=== PATIENT | female | born 1980 | race Caucasian/White ===

== ENCOUNTER → 2016-12-10 | Outpatient (CLI) | payer OTHER ==
--- NOTE | 2016-12-10 14:51 | REP ---
CHEST X-RAY: Two views. HISTORY: Shortness of breath. Evaluation for pulmonary embolus. FINDINGS: The lungs are well inflated and clear. The pleural angles are sharp. Heart size is normal. Pulmonary vasculature is not increased. There are degenerative changes in the thoracic spine. No significant change radiographically from the prior study of May 01, 2013. IMPRESSION: No active disease. Signed by Tereso Watson MD 12/10/2016 04:25 P
--- NOTE | 2016-12-10 15:18 | REP ---
V/Q SCAN: Following the intravenous administration of 5.5 millicuries technetium 99m tagged MAA and the inhalation of 1 millicurie technetium 99m DTPA aerosol, multiple images of the lungs are obtained in various projections. Non-segmental matching ventilation and perfusion defects are seen in both apical regions in a symmetrical pattern. I see no areas of V/Q mismatch. IMPRESSION: Low probability of pulmonary embolism. Signed by Demetrius Tamez MD 12/10/2016 03:19 P
== END ==
LOC: M RAD 13:54
PROVIDERS: ATTEND Internal Medicine Pulmonary Disease
DX: R06.02 Shortness of breath (principal)

== ENCOUNTER → 2017-09-22 | Outpatient (REF) | payer OTHER | LOC: M LAB REF 10:16 | DX: J02.9 Acute pharyngitis, unspecified (principal) ==

== ENCOUNTER → 2017-10-18 | Outpatient (CLI) | payer OTHER ==
[~2017-10-18] MED LIST: E-Z-GAS II EFFERVESCENT PACKET (SODIUM BICARB./CITRIC ACID/SIMETHICONE) As Ordered; E-Z-HD 98% w/w 340GM SUSP BTL As Ordered; E-Z-PAQUE 96% w/w SUSP 176GM BTL As Ordered
== END ==
LOC: M RAD 10:27
DX: Z98.84 Bariatric surgery status (principal)
CPT/HCPCS: 74220

== ENCOUNTER → 2018-01-27 | Outpatient (CLI) | payer OTHER | LOC: M PAIN 13:00 | DX: M54.81 Occipital neuralgia (principal); M50.122 Cervical disc disorder at C5-C6 level with radiculopathy; G89.29 Other chronic pain; R01.1 Cardiac murmur, unspecified; M19.90 Unspecified osteoarthritis, unspecified site; Z79.899 Other long term (current) drug therapy; Z88.6 Allergy status to analgesic agent; Z86.711 Personal history of pulmonary embolism; Z98.84 Bariatric surgery status | CPT/HCPCS: G0463 ==

== ENCOUNTER → 2018-03-03 | Outpatient (REF) | payer OTHER | LOC: M LAB REF 21:29 | DX: J02.9 Acute pharyngitis, unspecified (principal) ==

== ENCOUNTER → 2018-05-09 | Outpatient (CLI) | payer OTHER ==
--- NOTE | 2018-05-20 01:48 | ECWPNPC ---
PATIENT NAME: ADRIANA WHITMAN : 1980 GENDER: FEMALE VISIT DATE: 05/09/2018 DISCHARGE DATE: 05/09/18 1403 VISIT LOCKED DATE TIME: PHYSICIAN: TRISTON ELIZABETH RESOURCE: TRISTON ELIZABETH REASON FOR APPOINTMENT 1. NECK PAIN PT OF SW HISTORY OF PRESENT ILLNESS HISTORY OF PRESENT ILLNESS: HERE FORF/U OF CHRONIC NECK AND LEG PAIN. HAD VEIN STRIPPING ONE YEAR AGO WITH AGGREVATION OF PAIN.HAS BEEN ON GABAPENTIN SINCE THIS SURGERY.SHE STATES IT HELPS HER PAIN BUT SHE FEELS IT CAUSES SIDE EFFECTS.VERY DISCOURAGED.RATING PAIN VAS 7/10. PAIN THE PATIENT DESCRIBES THE PAIN... FALL RISK SCREENING: SCREENING :NO FALLS IN THE PAST YEAR CURRENT MEDICATIONS TAKING GABAPENTIN 600 MG TABLET 1 TABLET ORALLY THREE TIMES DAILY, NOTES: OUT OF MEDICATION TAKING IRON 325 (65 FE) MG TABLET 1 TABLET ORALLY ONCE A DAY TAKING MULTIVITAMIN ADULT - TABLET ORALLY TAKING TYLENOL 325 MG CAPSULE 1 CAPSULE NEEDED ORALLY EVERY 4 HRS TAKING BACLOFEN 10 MG TABLET 1/2 TAB ORALLY TAKE 1/2 TAB AT BEDTIME UNKNOWN PERCOCET 5-325 MG TABLET 1 TABLET NEEDED ORALLY EVERY 6 HRS FOR PAIN MEDICATION LIST REVIEWED AND RECONCILED WITH THE PATIENT PAST MEDICAL HISTORY PULMONARY EMBOLISM KIDNEY STONE HEART MURMUR ARTHRITIS CHRONIC BACK PAIN ALLERGIES NSAIDS: CONTRAINDICATED R/T GASTRIC BYPASS: CONTRAINDICATION SURGICAL HISTORY 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 1 SON(S) , 1 DAUGHTER(S) - HEALTHY. NO KNOWN FAMILY HISTORY OF ANY UROLOGICALLY RELATED DISEASES/CANCERS. ONE DAUGHTER WITH MIGRAINES, MOM R/T BRAIN TUMOR. SOCIAL HISTORY GENERAL: TOBACCO USE ARE YOU A:NEVER SMOKER ALCOHOL SCREENING DID YOU HAVE A DRINK CONTAINING ALCOHOL IN THE PAST YEAR?NO POINTS0 INTERPRETATIONNEGATIVE RECREATIONAL DRUG USE DENIES. CAFFEINE 2-5/DAY. SEXUAL HX HAD SEX IN THE LAST 12 MONTHS (VAGINAL, ORAL, OR ANAL)?NO HAVE YOU EVER HAD AN STD?NO ALEVISM NO HINDUISM BELIEFS THAT WOULD IMPACT HEALTH CARE. LANGUAGE UKRAINIAN. LEARNING BARRIERS / SPECIAL NEEDS BARRIERS TO LEARNING?NO HEARING IMPAIRED?NO VISION IMPAIRED?NO COGNITIVELY IMPAIRED?NO READINESS TO LEARN?YES LEARNING PREFERENCES?NO LEARNING CAPABILITIES PRESENT?YES EMOTIONAL BARRIERS?NO SPECIAL DEVICES?NO WIND TURBINE SERVICE TECHNICIAN NEEDED?NO DOMESTIC VIOLENCE NONE. 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 DIET: REGULAR, HEALTHY. EXERCISE: WALKS, TREADMILL MATTEO. MARITAL STATUS: .. OTHERS AT HOME: CHILDREN, BOYFRIEND. PAIN CLINIC PFS, CLERGY, PUBLIC HEALTH REFERRALS HAS THE PATIENT BEEN EDUCATED REGARDING HIS/HER PLAN OF CARE?YES HAS THE PATIENT BEEN EDUCATED REGARDING PAIN, THE RISK FOR PAIN, THE IMPORTANCE OF EFFECTIVE PAIN MANAGEMENT, AND THE PAIN ASSESSMENT PROCESS?YES ADVANCE DIRECTIVE ADVANCE DIRECTIVE DISCUSSED WITH PATIENT:YES NO ADVANCED DIRECTIVES, PT DECLINES INFORMATION AT THIS TIME HOSPITALIZATION/MAJOR DIAGNOSTIC PROCEDURE PULMONARY EMBOLISM S/P LEG FRACTURE 2003 REVIEW OF SYSTEMS REVIEWED BY: PROVIDER: TRISTON AGUIRRE . CONSTITUTIONAL: ANY CHANGE IN YOUR MEDICAL CONDITION? NO . CHILLS NO . FEVER NO . INFECTION: DO YOU HAVE NEW INFECTIONS? NO . DO YOU HAVE HISTORY OF MRSA? NO . MUSCULOSKELETAL: ANY NEW PATTERNS OF PAIN OR NUMBNESS? UNREASE IN HEADACHES AND IS GAINING WEIGHT BECAUSE OF DECREASED ACTIVIYT . GASTROENTEROLOGY: ANY NEW CHANGE IN BOWEL CONTROL? NO . GENITOURINARY: ANY NEW CHANGE IN BLADDER CONTROL? NO . IS THERE A CHANCE YOU COULD BE ? NO . HEMATOLOGY/LYMPH: DO YOU TAKE ANY BLOOD THINNERS? (FOR EXAMPLE- COUMADIN, PLAVIX, AGGRENOX, PLATEL, PRADAXA, OR XARELTO) NO . WHEN WAS YOUR LAST DOSE? DATE: TIME: . NEUROLOGY: HAVE YOU FALLEN IN THE PAST 12 MONTHS? NO . ANY NEW EXTREMITY NUMBNESS OR WEAKNESS? NO . CARDIOLOGY: DO YOU HAVE A PACEMAKER OR DEFIBRILLATOR? NO . RESPIRATORY: HAVE YOU BEEN SICK IN THE PAST WEEK? NO . FEVER NO . FLU LIKE SYMPTOMS? NO . COUGH NO . INTEGUMENTARY: DO YOU HAVE ANY RASHES OR OPEN SORES? NO . ALLERGIC/IMMUNO: ARE YOU ALLERGIC TO IV DYE? NO . ANY NEW ALLERGIES? NO . PSYCHIATRIC: DO YOU HAVE THOUGHTS OF HURTING YOURSELF OR SOMEONE ELSE? NO . ARE YOU ABUSED, NEGLECTED, OR IN AN UNSAFE ENVIRONMENT? NO . ENDOCRINOLOGY: ARE YOU DIABETIC? NO . OTHER: DO YOU NEED ANY PRESCRIPTIONS? BACLOFEN GIVING HER HEADACHES GABAPENTION IS RIUNNNING OUT AND THINKING THGAT PERGHAPS YOU WILL BE NAVJOT SERRANO OVER THAT . IF YES, PLEASE LIST: ____ . ANY NEW PROBLEMS WITH YOUR MEDICATIONS? NO . WHEN DID YOU LAST EAT? ____ . WHEN DID YOU LAST DRINK? ____ . WHAT DID YOU LAST DRINK? ____ . NAME OF PERSON DRIVING YOU HOME? ____ . DO YOU HAVE ANY OTHER QUESTIONS OR CONCERNS NO . VITAL SIGNS WT 197.4 LBS, HT 69", BMI 29.15 INDEX, BP 129/76 MM HG, HR 67 /MIN, RR 18 /MIN, TEMP 98.0 F, OXYGEN SAT % 100%, NA INITIALS AW 1309. EXAMINATION GENERAL EXAMINATION: GENERAL APPEARANCE:AWAKE,ALERT ,PLEAASANT . PSYCHAFFECT NORMAL . NECK:TRACHEA MIDLINE. NO CERVICAL OR SUPRACLAVICULAR LYMPHADENOPATHY NOTED. LUNGS:LUNG SANCHEZ ARE CLEAR TO AUSCULTATION BILATERALLY. GOOD MOVEMENT OF AIR . HEART:S1, S2 IN A REGULAR RATE AND RHYTHM. NO SIGNIFICANT MURMURS, RUBS OR GALLOPS NOTED . ABDOMEN:SOFT/NONTENDER. MUSCULOSKELETAL:MUSCLE STRENGTH TESTING 5/5 BILATERAL UPPER/LOWER EXTREMITIES. LUMBAR SACRAL SPINEPALPATION: NEGATIVE FOR PAIN OVER L/S SPINE. NEGATIVE FOR PAIN OVER L/S PARASPINALS. , TRIGGER POINTS:. CERVICALNEGATIVE FOR PAIN WITH PALPATION OF CERVICAL SPINE. NEGATIVE FOR PAIN WITH PALPATION OF CERVICAL PARASPINALS. NEGATIVE FOR PAIN WITH PALPATION OF TRAPEZIUS BILAT. SKIN:NO RASH OR SKIN LESIONS. NEUROLOGIC EXAM:CN'S NORMAL TESTED , DTRS 1-2+ IN ALL 4 EXTREMITIES. DIAGNOSTIC TESTS REVIEWEDMRI L/S SPINE- MRI C-SPINE-. ASSESSMENTS ARTHRALGIA OF CERVICAL SPINE - M54.2 (PRIMARY) MYALGIA OF MUSCLE OF NECK - M79.18 TREATMENT ARTHRALGIA OF CERVICAL SPINE DECREASE GABAPENTIN CAPSULE, 300 MG, 1 TABLET, ORALLY, THREE TIMES DAILY, 30 DAY(S), 90, REFILLS 2, NOTES: OUT OF MEDICATION START CYMBALTA CAPSULE DELAYED RELEASE PARTICLES, 30 MG, 1 CAPSULE, ORALLY, ONCE A DAY, 30 DAY(S), 30, REFILLS 2 NOTES: START PT PLANNED. PROCEDURE CODES FA211 ESTABILISHED PATIENT [facility] CHARGE DISPOSITION & COMMUNICATION FOLLOW UP 2 MONTHS ELECTRONICALLY SIGNED BY TIMOTHY TERAN ON 05/19/2018 AT 05:27 PM EST DISCLAIMER : THIS IS A VISIT SUMMARY EXTRACTED FROM THE [employer] CHART. IT IS NOT A COPY OF THE [employer] PROGRESS NOTE. SANTANA
== END ==
LOC: M PAIN 13:00
PROVIDERS: ATTEND Nurse Practitioner Family
DX: M54.2 Cervicalgia (principal); M79.18 Myalgia, other site; M19.90 Unspecified osteoarthritis, unspecified site; Z79.899 Other long term (current) drug therapy; Z88.6 Allergy status to analgesic agent; Z86.711 Personal history of pulmonary embolism; Z86.79 Personal history of other diseases of the circulatory system; Z98.84 Bariatric surgery status

== ENCOUNTER → 2018-07-04 | Outpatient (CLI) | payer OTHER ==
--- NOTE | 2018-07-20 00:52 | ECWPNPC ---
PATIENT NAME: ADRIANA WHITMAN : 1980 GENDER: FEMALE VISIT DATE: 07/04/2018 DISCHARGE DATE: 07/04/18 1023 VISIT LOCKED DATE TIME: PHYSICIAN: TRISTON ELIZABETH RESOURCE: TRISTON ELIZABETH REASON FOR APPOINTMENT 1. NECK PAIN HISTORY OF PRESENT ILLNESS HISTORY OF PRESENT ILLNESS: HERE FOR F/U OF CHRONIC LOWER EXTREMITY PAIN,NECK AND LOW BACK PAIN.STATES SHE COULDNT TOLERATE CYMBALTA TRIALED AT LAST VISIT IT CAUSED AGGREVATION OF DEPRESSION AND NO IMPROVEMENT IN PAIN.WE HAD TRIALED THIS SHE WAS HAVING PROBLEMS WITH GABAPENTIN.RATING PAIN VAS 6/10. PAIN THE PATIENT DESCRIBES THE PAIN... FALL RISK SCREENING: SCREENING : NO FALLS IN THE PAST YEAR. CURRENT MEDICATIONS TAKING IRON 325 (65 FE) MG TABLET 1 TABLET ORALLY ONCE A DAY TAKING MULTIVITAMIN ADULT - TABLET ORALLY TAKING TYLENOL 325 MG CAPSULE 1 CAPSULE NEEDED ORALLY EVERY 4 HRS TAKING GABAPENTIN 300 MG CAPSULE 1 TABLET ORALLY THREE TIMES DAILY NOT-TAKING BACLOFEN 10 MG TABLET 1/2 TAB ORALLY TAKE 1/2 TAB AT BEDTIME NOT-TAKING CYMBALTA 30 MG CAPSULE DELAYED RELEASE PARTICLES 1 CAPSULE ORALLY ONCE A DAY NOT-TAKING PERCOCET 5-325 MG TABLET 1 TABLET NEEDED ORALLY EVERY 6 HRS FOR PAIN MEDICATION LIST REVIEWED AND RECONCILED WITH THE PATIENT PAST MEDICAL HISTORY PULMONARY EMBOLISM KIDNEY STONE HEART MURMUR ARTHRITIS CHRONIC BACK PAIN ALLERGIES NSAIDS: CONTRAINDICATED R/T GASTRIC BYPASS - CONTRAINDICATION SURGICAL HISTORY 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 1 SON(S) , 1 DAUGHTER(S) - HEALTHY. NO KNOWN FAMILY HISTORY OF ANY UROLOGICALLY RELATED DISEASES\\/CANCERS. \\NONE DAUGHTER WITH MIGRAINES, \\NMOM R\\/T BRAIN TUMOR. SOCIAL HISTORY GENERAL: TOBACCO USE ARE YOU A:: NEVER SMOKER . LATEX QUESTIONNAIRE LATEX ALLERGY : HAVE YOU EVER DEVELOPED ANY TYPE OF REACTION AFTER HANDLING LATEX PRODUCTS SUCH RUBBER GLOVES, CONDOMS, DIAPHRAGMS, BALLOONS, SOCKS, OR UNDERWEAR?NO LATEX ALLERGY : HAVE YOU EVER DEVELOPED ANY TYPE OF REACTION DURING OR AFTER DENTAL APPOINTMENT, VAGINAL/RECTAL EXAMINATION, SURGICAL PROCEDURE, OR ANY OTHER EXPOSURE?NO LATEX RISK : HAVE YOU EVER HAD ANY DIFFICULTY BREATHING OR HIVES AFTER EATING OR HANDLING ANY FRUITS, OR VEGETABLES; SUCH KIWI, BANANAS, STONE FRUITS, OR CHESTNUTSNO LATEX RISK : DO YOU HAVE A PREVIOUS PERSONAL HISTORY OF MORE THAN NINE SURGERIES, SPINA BIFIDA, OR REPEATED CATHERTIZATIONS? NO LATEX RISK : ARE YOU FREQUENTLY EXPOSED TO LATEX PRODUCTS IN YOUR OCCUPATION?NO DATE ASKED : 07/04/2018 ALCOHOL SCREENING POINTS: 0, INTERPRETATION: NEGATIVE. RECREATIONAL DRUG USE DENIES. CAFFEINE 2-5/DAY. SEXUAL HX HAD SEX IN THE LAST 12 MONTHS (VAGINAL, ORAL, OR ANAL)?: NO, HAVE YOU EVER HAD AN STD?: NO. GNOSTICISM NO YARSANI BELIEFS THAT WOULD IMPACT HEALTH CARE. LANGUAGE KAZAKH. LEARNING BARRIERS / SPECIAL NEEDS BARRIERS TO LEARNING?NO HEARING IMPAIRED?NO VISION IMPAIRED?NO COGNITIVELY IMPAIRED?NO READINESS TO LEARN?YES LEARNING PREFERENCES?NO LEARNING CAPABILITIES PRESENT?YES EMOTIONAL BARRIERS?NO SPECIAL DEVICES?NO BANK AND SAVINGS SECURITIES TRADER NEEDED?NO DOMESTIC VIOLENCE NONE. OCCUPATION: [employer]. DIET: REGULAR, HEALTHY. EXERCISE: WALKS, TREADMILL MATTEO. MARITAL STATUS: .. OTHERS AT HOME: CHILDREN, BOYFRIEND. PAIN CLINIC PFS, CLERGY, PUBLIC HEALTH REFERRALS HAS THE PATIENT BEEN EDUCATED REGARDING HIS/HER PLAN OF CARE?YES HAS THE PATIENT BEEN EDUCATED REGARDING PAIN, THE RISK FOR PAIN, THE IMPORTANCE OF EFFECTIVE PAIN MANAGEMENT, AND THE PAIN ASSESSMENT PROCESS?YES ADVANCE DIRECTIVE ADVANCE DIRECTIVE DISCUSSED WITH PATIENT:YES NO ADVANCED DIRECTIVES, PT DECLINES INFORMATION OR ASSISTANCE FILLING ONE OUT AT THIS TIME REVIEWED WITH PT 07/04/18 7418 LAS. HOSPITALIZATION/MAJOR DIAGNOSTIC PROCEDURE PULMONARY EMBOLISM S/P LEG FRACTURE 2003 REVIEW OF SYSTEMS REVIEWED BY: PROVIDER: TRISTON AGUIRRE . CONSTITUTIONAL: ANY CHANGE IN YOUR MEDICAL CONDITION? NO . CHILLS NO . FEVER NO . INFECTION: DO YOU HAVE NEW INFECTIONS? NO . DO YOU HAVE HISTORY OF MRSA? NO . MUSCULOSKELETAL: ANY NEW PATTERNS OF PAIN OR NUMBNESS? PT REPORTS A GENERAL INCREASE IN PAIN, CAUSING HER TO LEAVE WORK EARLY DUE TO NECK PAIN/MIGRAINES . GASTROENTEROLOGY: ANY NEW CHANGE IN BOWEL CONTROL? NO . GENITOURINARY: ANY NEW CHANGE IN BLADDER CONTROL? NO . IS THERE A CHANCE YOU COULD BE ? NO . HEMATOLOGY/LYMPH: DO YOU TAKE ANY BLOOD THINNERS? (FOR EXAMPLE- COUMADIN, PLAVIX, AGGRENOX, PLATEL, PRADAXA, OR XARELTO) NO . WHEN WAS YOUR LAST DOSE? DATE: TIME: . NEUROLOGY: HAVE YOU FALLEN IN THE PAST 12 MONTHS? NO . ANY NEW EXTREMITY NUMBNESS OR WEAKNESS? NO . CARDIOLOGY: DO YOU HAVE A PACEMAKER OR DEFIBRILLATOR? NO . RESPIRATORY: HAVE YOU BEEN SICK IN THE PAST WEEK? PT REPORTS A STOMACH BUG LASTING ABOUT 4 DAYS, THIS WAS TWO WEEKS AGO. STOPPED HER MEDS AT THE SAME TIME, WONDERS IF IT IS RELATED. . FEVER NO . FLU LIKE SYMPTOMS? NO . COUGH NO . INTEGUMENTARY: DO YOU HAVE ANY RASHES OR OPEN SORES? NO . ALLERGIC/IMMUNO: ARE YOU ALLERGIC TO IV DYE? NO . ANY NEW ALLERGIES? NO . PSYCHIATRIC: DO YOU HAVE THOUGHTS OF HURTING YOURSELF OR SOMEONE ELSE? NO . ARE YOU ABUSED, NEGLECTED, OR IN AN UNSAFE ENVIRONMENT? NO . ENDOCRINOLOGY: ARE YOU DIABETIC? NO . OTHER: DO YOU NEED ANY PRESCRIPTIONS? NO . IF YES, PLEASE LIST: ____ . ANY NEW PROBLEMS WITH YOUR MEDICATIONS? PT REPORTS SHE STOPPED THE CYMBALTA, IT MADE HER FEEL TIRED, DEPRESSED, DIDN'T WANT TO DO ANYTHING . WHEN DID YOU LAST EAT? ____ . WHEN DID YOU LAST DRINK? ____ . WHAT DID YOU LAST DRINK? ____ . NAME OF PERSON DRIVING YOU HOME? ____ . VITAL SIGNS WT 200.8 LBS, HT 69", BMI 29.65 INDEX, BP 117/65 MM HG, HR 74 /MIN, RR 16 /MIN, TEMP 97.4 F, OXYGEN SAT % 99%, SAFE IN ENV? (Y/N) YES, NA INITIALS SD 09:27, REVIEWED BY: GALI. EXAMINATION GENERAL EXAMINATION: GENERAL APPEARANCE: AWAKE,ALERT ,PLEAASANT . PSYCH AFFECT NORMAL . LUNGS: LUNG SANCHEZ ARE CLEAR TO AUSCULTATION BILATERALLY. GOOD MOVEMENT OF AIR . HEART: S1, S2 IN A REGULAR RATE AND RHYTHM. NO SIGNIFICANT MURMURS, RUBS OR GALLOPS NOTED . CERVICAL TRIGGER POINTS: CERVICAL AND TRAPEZIUS BILAT..PAIN IS AGGREVATED WITH ROJM NECK. DIAGNOSTIC TESTS REVIEWED MRI C SPINE-12/31/16. ASSESSMENTS ARTHRALGIA OF CERVICAL SPINE - M54.2 (PRIMARY) MYALGIA OF MUSCLE OF NECK - M79.18 TREATMENT ARTHRALGIA OF CERVICAL SPINE REFILL GABAPENTIN CAPSULE, 100 MG, 1 TABLET, ORALLY, THREE TIMES DAILY, 30 DAY(S), 90, REFILLS 2 NOTES: TPI BILAT TRAPS/CSPINE,TRIGGER POINT INJECTION: YOUR EXPERIENCE MATERIAL WAS PRINTED-ERROR PLEASE RESTART GABAPENTN 300MG TID. PROCEDURE CODES FA211 ESTABILISHED PATIENT [facility] CHARGE DISPOSITION & COMMUNICATION FOLLOW UP POST (REASON: TPI BILAT TRAPS/CSPINE) ELECTRONICALLY SIGNED BY TIMOTHY TERAN ON 07/19/2018 AT 08:52 AM EDT DISCLAIMER : THIS IS A VISIT SUMMARY EXTRACTED FROM THE [employer] CHART. IT IS NOT A COPY OF THE [employer] PROGRESS NOTE. MTDD
== END ==
LOC: M PAIN 09:00
PROVIDERS: ATTEND Nurse Practitioner Family
DX: M54.2 Cervicalgia (principal); M79.18 Myalgia, other site; Z79.899 Other long term (current) drug therapy; Z88.6 Allergy status to analgesic agent; Z98.84 Bariatric surgery status

== ENCOUNTER → 2018-07-20 | Outpatient (CLI) | payer OTHER ==
[~2018-07-20] MED LIST changes: +BUPIVACAINE HCL 0.25% 10 ML VIAL As Ordered ONE; +BUPIVACAINE HCL 0.25% 30 ML VIAL As Ordered ONE; -E-Z-GAS II EFFERVESCENT PACKET (SODIUM BICARB./CITRIC ACID/SIMETHICONE) As Ordered; -E-Z-HD 98% w/w 340GM SUSP BTL As Ordered; -E-Z-PAQUE 96% w/w SUSP 176GM BTL As Ordered; +TRIAMCINOLONE ACETONIDE SUSP 40 MG/ML VIAL (J3301) As Ordered ONE; +diazePAM 5 MG TAB As Ordered ONE; +oxyCODONE 5MG TAB As Ordered ONE
--- NOTE | 2018-08-08 00:09 | ECWPNPC ---
PATIENT NAME: ADRIANA WHITMAN : 1980 GENDER: FEMALE VISIT DATE: 07/20/2018 DISCHARGE DATE: 07/20/18 1546 VISIT LOCKED DATE TIME: PHYSICIAN: HILARY CADENA MD RESOURCE: HILARY CADENA MD REASON FOR APPOINTMENT 1. TPI HISTORY OF PRESENT ILLNESS HISTORY OF PRESENT ILLNESS: PAIN THE PATIENT DESCRIBES THE PAIN... FALL RISK SCREENING: SCREENING :NO FALLS REPORTED IN THE LAST YEAR CURRENT MEDICATIONS TAKING IRON 325 (65 FE) MG TABLET 1 TABLET ORALLY ONCE A DAY, NOTES: 07/20/18829 TAKING MULTIVITAMIN ADULT - TABLET ORALLY , NOTES: 07/19/18 TAKING TYLENOL 325 MG CAPSULE 1 CAPSULE NEEDED ORALLY EVERY 4 HRS, NOTES: NONE IN A FEW DAYS TAKING GABAPENTIN 300 MG CAPSULE 1 CAPSULE ORALLY Q8H TID, NOTES: 07/20/18829 TAKING MOTRIN , NOTES: 07/20/18829 NOT-TAKING BACLOFEN 10 MG TABLET 1/2 TAB ORALLY TAKE 1/2 TAB AT BEDTIME NOT-TAKING CYMBALTA 30 MG CAPSULE DELAYED RELEASE PARTICLES 1 CAPSULE ORALLY ONCE A DAY NOT-TAKING PERCOCET 5-325 MG TABLET 1 TABLET NEEDED ORALLY EVERY 6 HRS FOR PAIN DISCONTINUED GABAPENTIN 100 MG CAPSULE 1 TABLET ORALLY THREE TIMES DAILY MEDICATION LIST REVIEWED AND RECONCILED WITH THE PATIENT PAST MEDICAL HISTORY PULMONARY EMBOLISM KIDNEY STONE HEART MURMUR ARTHRITIS CHRONIC BACK PAIN ALLERGIES NSAIDS: CONTRAINDICATED R/T GASTRIC BYPASS - CONTRAINDICATION SURGICAL HISTORY 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 1 SON(S) , 1 DAUGHTER(S) - HEALTHY. NO KNOWN FAMILY HISTORY OF ANY UROLOGICALLY RELATED DISEASES\\\\\\/CANCERS. \\\\NONE DAUGHTER WITH MIGRAINES, \\\\NMOM R\\\\\\/T BRAIN TUMOR. SOCIAL HISTORY GENERAL: TOBACCO USE ARE YOU A:: NEVER SMOKER . LATEX QUESTIONNAIRE LATEX ALLERGY : HAVE YOU EVER DEVELOPED ANY TYPE OF REACTION AFTER HANDLING LATEX PRODUCTS SUCH RUBBER GLOVES, CONDOMS, DIAPHRAGMS, BALLOONS, SOCKS, OR UNDERWEAR?NO LATEX ALLERGY : HAVE YOU EVER DEVELOPED ANY TYPE OF REACTION DURING OR AFTER DENTAL APPOINTMENT, VAGINAL/RECTAL EXAMINATION, SURGICAL PROCEDURE, OR ANY OTHER EXPOSURE?NO LATEX RISK : HAVE YOU EVER HAD ANY DIFFICULTY BREATHING OR HIVES AFTER EATING OR HANDLING ANY FRUITS, OR VEGETABLES; SUCH KIWI, BANANAS, STONE FRUITS, OR CHESTNUTSNO LATEX RISK : DO YOU HAVE A PREVIOUS PERSONAL HISTORY OF MORE THAN NINE SURGERIES, SPINA BIFIDA, OR REPEATED CATHERTIZATIONS? NO LATEX RISK : ARE YOU FREQUENTLY EXPOSED TO LATEX PRODUCTS IN YOUR OCCUPATION?NO DATE ASKED : 07/04/2018 ALCOHOL SCREENING POINTS: 0, INTERPRETATION: NEGATIVE. RECREATIONAL DRUG USE DENIES. CAFFEINE 2-5/DAY. SEXUAL HX HAD SEX IN THE LAST 12 MONTHS (VAGINAL, ORAL, OR ANAL)?: NO, HAVE YOU EVER HAD AN STD?: NO. ROMAN CATHOLIC NO MANDAEISM BELIEFS THAT WOULD IMPACT HEALTH CARE. LANGUAGE SAMMARINESE. LEARNING BARRIERS / SPECIAL NEEDS BARRIERS TO LEARNING?NO HEARING IMPAIRED?NO VISION IMPAIRED?NO COGNITIVELY IMPAIRED?NO READINESS TO LEARN?YES LEARNING PREFERENCES?NO LEARNING CAPABILITIES PRESENT?YES EMOTIONAL BARRIERS?NO SPECIAL DEVICES?NO LEAD CASTER HELPER NEEDED?NO DOMESTIC VIOLENCE NONE. OCCUPATION: [employer]. DIET: REGULAR, HEALTHY. EXERCISE: WALKS, TREADMILL MATTEO. MARITAL STATUS: .. OTHERS AT HOME: CHILDREN, BOYFRIEND. PAIN CLINIC PFS, CLERGY, PUBLIC HEALTH REFERRALS HAS THE PATIENT BEEN EDUCATED REGARDING HIS/HER PLAN OF CARE?YES HAS THE PATIENT BEEN EDUCATED REGARDING PAIN, THE RISK FOR PAIN, THE IMPORTANCE OF EFFECTIVE PAIN MANAGEMENT, AND THE PAIN ASSESSMENT PROCESS?YES ADVANCE DIRECTIVE ADVANCE DIRECTIVE DISCUSSED WITH PATIENT:YES NO ADVANCED DIRECTIVES, PT DECLINES INFORMATION OR ASSISTANCE FILLING ONE OUT AT THIS TIME 07/20/18 REVIEWED WITH PT 07/04/18 5230 LASREVIEWED WITH PT 07/20/18 1350 BV. HOSPITALIZATION/MAJOR DIAGNOSTIC PROCEDURE PULMONARY EMBOLISM S/P LEG FRACTURE 2003 REVIEW OF SYSTEMS REVIEWED BY: PROVIDER: . CONSTITUTIONAL: ANY CHANGE IN YOUR MEDICAL CONDITION? NO . CHILLS NO . FEVER NO . INFECTION: DO YOU HAVE NEW INFECTIONS? NO . DO YOU HAVE HISTORY OF MRSA? NO . MUSCULOSKELETAL: ANY NEW PATTERNS OF PAIN OR NUMBNESS? YES, PT STATES PAIN IN NECK IS USUALLY INTERMITTENT, BUT HAS BEEN INTENSE AND CONSTANT FOR THE PAST 4 DAYS . GASTROENTEROLOGY: ANY NEW CHANGE IN BOWEL CONTROL? NO . GENITOURINARY: ANY NEW CHANGE IN BLADDER CONTROL? NO . IS THERE A CHANCE YOU COULD BE ? NO . HEMATOLOGY/LYMPH: DO YOU TAKE ANY BLOOD THINNERS? (FOR EXAMPLE- COUMADIN, PLAVIX, AGGRENOX, PLATEL, PRADAXA, OR XARELTO) NO . WHEN WAS YOUR LAST DOSE? DATE: TIME: . NEUROLOGY: HAVE YOU FALLEN IN THE PAST 12 MONTHS? NO . ANY NEW EXTREMITY NUMBNESS OR WEAKNESS? NO . CARDIOLOGY: DO YOU HAVE A PACEMAKER OR DEFIBRILLATOR? NO . RESPIRATORY: HAVE YOU BEEN SICK IN THE PAST WEEK? NO . FEVER NO . FLU LIKE SYMPTOMS? NO . COUGH NO . INTEGUMENTARY: DO YOU HAVE ANY RASHES OR OPEN SORES? NO . ALLERGIC/IMMUNO: ARE YOU ALLERGIC TO IV DYE? NO . ANY NEW ALLERGIES? NO . PSYCHIATRIC: DO YOU HAVE THOUGHTS OF HURTING YOURSELF OR SOMEONE ELSE? NO . ARE YOU ABUSED, NEGLECTED, OR IN AN UNSAFE ENVIRONMENT? NO . ENDOCRINOLOGY: ARE YOU DIABETIC? NO . OTHER: DO YOU NEED ANY PRESCRIPTIONS? NO . IF YES, PLEASE LIST: ____ . ANY NEW PROBLEMS WITH YOUR MEDICATIONS? NO . WHEN DID YOU LAST EAT? YES, 07/20/18 1100 PROTEIN SHAKE . WHEN DID YOU LAST DRINK? 07/20/18 1230 . WHAT DID YOU LAST DRINK? ICED COFFEE . NAME OF PERSON DRIVING YOU HOME? BRIAN J CARLOS . DO YOU HAVE ANY OTHER QUESTIONS OR CONCERNS NO . VITAL SIGNS WT 190.6 LBS, HT 69", BMI 28.14 INDEX, BP 124/75 MM HG, HR 66 /MIN, RR 16 /MIN, TEMP 99.3 F, OXYGEN SAT % 99%, NA INITIALS SC 13:16, REVIEWED BY: BV. ASSESSMENTS MYALGIA, OTHER SITE - M79.18 (PRIMARY) PROCEDURES PN TRIGGER POINT INJECTION WITH STEROIDS PRE PROCEDURE DIAGNOSIS 1. MYALGIA 2. PAIN AT BILATERAL NECK AREA AND BILATERAL SHOULDER AREA POST PROCEDURE DIAGNOSIS 1. MYALGIA 2. PAIN AT BILATERAL NECK AREA AND BILATERAL SHOULDER AREA PROCEDURE TRIGGER POINT INJECTION AT BILATERAL NECK AREA AND BILATERAL SHOULDER AREA SURGEON DR. HILARY CADENA CONSUMER SERVICES CONSULTANT NONE ANESTHESIA LOCAL PRE PROCEDURE NOTE THE PATIENT HAS A HISTORY OF CHRONIC PAIN AT THE RIGHT AND LEFT NECK AREA AND RIGHT AND LEFT SHOULDER AREA. I EVALUATE THE PATIENT AND REVIEWED THE CHART. THERE IS EVIDENCE OF BANDS OF TISSUE WITH RESTRICTION OF MOVEMENT AND PRESENCE OF TRIGGER POINT AT THE AFFECTED AREA. I WENT OVER THE RISKS, ALTERNATIVES, AND BENEFITS ASSOCIATED WITH THIS PROCEDURE. THE PATIENT WOULD LIKE TO PROCEED AND GIVE CONSENT TO PERFORMED THE PROCEDURE. THE PATIENT DENIES UNEXPLAINABLE WEIGHT LOSS, FEVER, CHILLS, OR NEW CHANGES IN URINARY OR BOWEL CONTROL DESCRIPTION OF PROCEDURE THE PATIENT WAS BROUGHT TO THE PROCEDURE ROOM AND PLACED IN THE SITTING POSITION. THE AREA WAS CLEANED WITH ALCOHOL. THE PROCEDURE WAS DONE USING ASEPTIC STERILE TECHNIQUE. I CHECKED LATERALITY AND THE LEVEL WHERE THE PROCEDURE WAS GOING TO BE PERFORMED WITH THE PATIENT AND THE SUPPORTING STAFF AT THE MOMENT OF THE TIME OUT IN THE PROCEDURE ROOM. USING A 25-GAUGE NEEDLE, TRIGGER POINTS WERE INJECTED AT THE RIGHT AND LEFT NECK AREA AND RIGHT AND LEFT SHOULDER AREA WITH A TOTAL OF 40 ML OF BUPIVACAINE 0.25% AND KENALOG 40 MG. THERE WAS NO EVIDENCE OF BLOOD, PARESTHESIA OR CEREBROSPINAL FLUID DURING THE PROCEDURE. THE PATIENT WAS SENT TO THE RECOVERY ROOM. THE PATIENT WAS MOVING THE EXTREMITIES AND DOING WELL. THERE WAS NO COMPLICATION DURING THE PROCEDURE POST PROCEDURE NOTE THE PATIENT WILL BE SEEN IN A FOLLOW UP IN THE NEXT FEW WEEKS. INSTRUCTIONS WERE GIVEN, QUESTIONS WERE ANSWERED, AND THE PATIENT EXPRESSED UNDERSTANDING AND AGREES WITH THE PLAN. I, DESI TAMAYO, DOCUMENTED THE ABOVE INFORMATION ACTING A SCRIBE FOR DR. CADENA. I HAVE REVIEWED THE ABOVE DOCUMENT, WRITTEN BY DESI CONTRERAS AND I VERIFY THAT IT IS ACCURATE. PROCEDURE CODES 01626 INJECT TRIGGER POINTS 3/> DISPOSITION & COMMUNICATION FOLLOW UP 3 WEEKS ELECTRONICALLY SIGNED BY HILARY CADENA MD, MD ON 08/07/2018 AT 03:49 PM EDT DISCLAIMER : THIS IS A VISIT SUMMARY EXTRACTED FROM THE [employer] CHART. IT IS NOT A COPY OF THE [employer] PROGRESS NOTE. LIBERTADD
== END ==
LOC: M PAIN 13:15
PROVIDERS: ATTEND Anesthesiology
DX: M79.18 Myalgia, other site (principal); M54.2 Cervicalgia; M25.511 Pain in right shoulder; M25.512 Pain in left shoulder; M19.90 Unspecified osteoarthritis, unspecified site; Z79.899 Other long term (current) drug therapy; Z88.6 Allergy status to analgesic agent; Z86.79 Personal history of other diseases of the circulatory system; Z86.711 Personal history of pulmonary embolism; Z98.84 Bariatric surgery status
CPT/HCPCS: 20553; J3301

== ENCOUNTER → 2018-08-12 | Outpatient (CLI) | payer OTHER ==
--- NOTE | 2018-08-31 01:28 | ECWPNPC ---
PATIENT NAME: ADRIANA WHITMAN : 1980 GENDER: FEMALE VISIT DATE: 08/12/2018 DISCHARGE DATE: 08/12/18 1444 VISIT LOCKED DATE TIME: PHYSICIAN: TRISTON ELIZABETH RESOURCE: TRISTON ELIZABETH REASON FOR APPOINTMENT 1. POST PROC- DISCUSS PT ORDERED 01/27 BY SOFYA HISTORY OF PRESENT ILLNESS HISTORY OF PRESENT ILLNESS: HERE FOR POST PROCEDURE F/U.HAD TPI BILATERAL NECK AND SHOULDERS.REPORTING SOME IMPROVEMENT THAT CONTINUES TODAY.ATTENDING PT AND FINDS THIS SOMEWHAT HELPFUL.RATING PAIN VAS 7/10. PAIN THE PATIENT DESCRIBES THE PAIN... FALL RISK SCREENING: SCREENING :NO FALLS REPORTED IN THE LAST YEAR CURRENT MEDICATIONS TAKING IRON 325 (65 FE) MG TABLET 1 TABLET ORALLY ONCE A DAY TAKING MULTIVITAMIN ADULT - TABLET ORALLY TAKING TYLENOL 325 MG CAPSULE 1 CAPSULE NEEDED ORALLY EVERY 4 HRS TAKING GABAPENTIN 300 MG CAPSULE 1 CAPSULE ORALLY Q8H TID NOT-TAKING BACLOFEN 10 MG TABLET 1/2 TAB ORALLY TAKE 1/2 TAB AT BEDTIME NOT-TAKING CYMBALTA 30 MG CAPSULE DELAYED RELEASE PARTICLES 1 CAPSULE ORALLY ONCE A DAY NOT-TAKING PERCOCET 5-325 MG TABLET 1 TABLET NEEDED ORALLY EVERY 6 HRS FOR PAIN DISCONTINUED MOTRIN MEDICATION LIST REVIEWED AND RECONCILED WITH THE PATIENT PAST MEDICAL HISTORY PULMONARY EMBOLISM KIDNEY STONE HEART MURMUR ARTHRITIS CHRONIC BACK PAIN ALLERGIES NSAIDS: CONTRAINDICATED R/T GASTRIC BYPASS - CONTRAINDICATION SURGICAL HISTORY 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 1 SON(S) , 1 DAUGHTER(S) - HEALTHY. NO KNOWN FAMILY HISTORY OF ANY UROLOGICALLY RELATED DISEASES\\\\\\\\\\\\\\/CANCERS. \\\\\\\\NONE DAUGHTER WITH MIGRAINES, \\\\\\\\NMOM R\\\\\\\\\\\\\\/T BRAIN TUMOR. SOCIAL HISTORY GENERAL: TOBACCO USE ARE YOU A:: NEVER SMOKER. OTHERS AT HOME: CHILDREN, BOYFRIEND. DIET: REGULAR, HEALTHY. LANGUAGE LAO. DOMESTIC VIOLENCE NONE. RECREATIONAL DRUG USE DENIES. EXERCISE: WALKS, TREADMILL MATTEO. 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 NEEDED?NO PAIN CLINIC PFS, CLERGY, PUBLIC HEALTH REFERRALS HAS THE PATIENT BEEN EDUCATED REGARDING HIS/HER PLAN OF CARE?YES HAS THE PATIENT BEEN EDUCATED REGARDING PAIN, THE RISK FOR PAIN, THE IMPORTANCE OF EFFECTIVE PAIN MANAGEMENT, AND THE PAIN ASSESSMENT PROCESS?YES LATEX QUESTIONNAIRE LATEX ALLERGY : HAVE YOU EVER DEVELOPED ANY TYPE OF REACTION AFTER HANDLING LATEX PRODUCTS SUCH RUBBER GLOVES, CONDOMS, DIAPHRAGMS, BALLOONS, SOCKS, OR UNDERWEAR?NO LATEX ALLERGY : HAVE YOU EVER DEVELOPED ANY TYPE OF REACTION DURING OR AFTER DENTAL APPOINTMENT, VAGINAL/RECTAL EXAMINATION, SURGICAL PROCEDURE, OR ANY OTHER EXPOSURE?NO LATEX RISK : HAVE YOU EVER HAD ANY DIFFICULTY BREATHING OR HIVES AFTER EATING OR HANDLING ANY FRUITS, OR VEGETABLES; SUCH KIWI, BANANAS, STONE FRUITS, OR CHESTNUTSNO LATEX RISK : DO YOU HAVE A PREVIOUS PERSONAL HISTORY OF MORE THAN NINE SURGERIES, SPINA BIFIDA, OR REPEATED CATHERTIZATIONS? NO LATEX RISK : ARE YOU FREQUENTLY EXPOSED TO LATEX PRODUCTS IN YOUR OCCUPATION?NO DATE ASKED : 07/04/2018 CAFFEINE 2-5/DAY. ADVANCE DIRECTIVE ADVANCE DIRECTIVE DISCUSSED WITH PATIENT:YES NO ADVANCED DIRECTIVES, PT DECLINES INFORMATION OR ASSISTANCE FILLING ONE OUT AT THIS TIME 08/12/18 [place] NO YAZIDI BELIEFS THAT WOULD IMPACT HEALTH CARE. MARITAL STATUS: .. ALCOHOL SCREENING POINTS: 0, INTERPRETATION: NEGATIVE. 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 SEXUAL HX HAD SEX IN THE LAST 12 MONTHS (VAGINAL, ORAL, OR ANAL)?: NO, HAVE YOU EVER HAD AN STD?: NO. REVIEWED WITH PT 07/04/18 0930 LASREVIEWED WITH PT 07/20/18 1350 BVREVIEWED WITH PT 08/12/18 1358 BV. HOSPITALIZATION/MAJOR DIAGNOSTIC PROCEDURE PULMONARY EMBOLISM S/P LEG FRACTURE 2003 REVIEW OF SYSTEMS REVIEWED BY: PROVIDER: TRISTON AGUIRRE . CONSTITUTIONAL: ANY CHANGE IN YOUR MEDICAL CONDITION? NO . CHILLS NO . FEVER NO . INFECTION: DO YOU HAVE NEW INFECTIONS? NO . DO YOU HAVE HISTORY OF MRSA? NO . MUSCULOSKELETAL: ANY NEW PATTERNS OF PAIN OR NUMBNESS? NO . GASTROENTEROLOGY: ANY NEW CHANGE IN BOWEL CONTROL? NO . GENITOURINARY: ANY NEW CHANGE IN BLADDER CONTROL? NO . IS THERE A CHANCE YOU COULD BE ? NO . HEMATOLOGY/LYMPH: DO YOU TAKE ANY BLOOD THINNERS? (FOR EXAMPLE- COUMADIN, PLAVIX, AGGRENOX, PLATEL, PRADAXA, OR XARELTO) NO . WHEN WAS YOUR LAST DOSE? DATE: TIME: . NEUROLOGY: HAVE YOU FALLEN IN THE PAST 12 MONTHS? NO . ANY NEW EXTREMITY NUMBNESS OR WEAKNESS? NO . CARDIOLOGY: DO YOU HAVE A PACEMAKER OR DEFIBRILLATOR? NO . RESPIRATORY: HAVE YOU BEEN SICK IN THE PAST WEEK? NO . FEVER NO . FLU LIKE SYMPTOMS? NO . COUGH NO . INTEGUMENTARY: DO YOU HAVE ANY RASHES OR OPEN SORES? YES, PT STATES SHE HAS A FEW SMALL CUTS ON BILATERAL LEGS. DENIES ANY SIGNS OF INFECTION. . ALLERGIC/IMMUNO: ARE YOU ALLERGIC TO IV DYE? NO . ANY NEW ALLERGIES? NO . PSYCHIATRIC: DO YOU HAVE THOUGHTS OF HURTING YOURSELF OR SOMEONE ELSE? NO . ARE YOU ABUSED, NEGLECTED, OR IN AN UNSAFE ENVIRONMENT? NO . ENDOCRINOLOGY: ARE YOU DIABETIC? NO . OTHER: DO YOU NEED ANY PRESCRIPTIONS? NO . IF YES, PLEASE LIST: ____ . ANY NEW PROBLEMS WITH YOUR MEDICATIONS? NO . WHEN DID YOU LAST EAT? ____ . WHEN DID YOU LAST DRINK? ____ . WHAT DID YOU LAST DRINK? ____ . NAME OF PERSON DRIVING YOU HOME? ____ . DO YOU HAVE ANY OTHER QUESTIONS OR CONCERNS NO . VITAL SIGNS WT 187.2 LBS, HT 69", BMI 27.64 INDEX, BP 110/70 MM HG, HR 68 /MIN, RR 16 /MIN, TEMP 97.9 F, OXYGEN SAT % 98%, NA INITIALS SC 13:39, REVIEWED BY: BV. EXAMINATION GENERAL EXAMINATION: GENERAL APPEARANCE: AWAKE,ALERT ,PLEAASANT . PSYCH AFFECT NORMAL . LUNGS: LUNG SANCHEZ ARE CLEAR TO AUSCULTATION BILATERALLY. GOOD MOVEMENT OF AIR . HEART: S1, S2 IN A REGULAR RATE AND RHYTHM. NO SIGNIFICANT MURMURS, RUBS OR GALLOPS NOTED . CERVICAL TRIGGER POINTS: CERVICAL AND TRAPEZIUS BILAT..PAIN IS AGGREVATED WITH ROJM NECK. DIAGNOSTIC TESTS REVIEWED MRI C SPINE-12/31/16. ASSESSMENTS ARTHRALGIA OF CERVICAL SPINE - M54.2 (PRIMARY) MYALGIA OF MUSCLE OF NECK - M79.18 TREATMENT ARTHRALGIA OF CERVICAL SPINE NOTES: CONTINUE PT/ TPI BILAT. NECK/SHOULDERS. PREVENTIVE MEDICINE PAIN CLINIC TEACHING: PROCEDURE TEACHING PT GIVEN WRITTEN AND VERBAL PRE-PROCEDURE INSTRUCTIONS. PT VERBALIZES UNDERSTANDING OF ALL INSTRUCTIONS. JAIME LAGUNAS 08/12/2018 2:43:57 PM > . PROCEDURE CODES FA211 ESTABILISHED PATIENT [facility] CHARGE DISPOSITION & COMMUNICATION FOLLOW UP POST (REASON: TPI BILAT. NECK/SHOULDERS) ELECTRONICALLY SIGNED BY TIMOTHY TERAN ON 08/29/2018 AT 05:01 PM EDT DISCLAIMER : THIS IS A VISIT SUMMARY EXTRACTED FROM THE [employer] CHART. IT IS NOT A COPY OF THE [employer] PROGRESS NOTE. SANTANA
== END ==
LOC: M PAIN 13:45
PROVIDERS: ATTEND Nurse Practitioner Family
DX: M54.2 Cervicalgia (principal); M79.18 Myalgia, other site; Z86.711 Personal history of pulmonary embolism; M19.90 Unspecified osteoarthritis, unspecified site; Z98.84 Bariatric surgery status; Z88.6 Allergy status to analgesic agent; Z79.899 Other long term (current) drug therapy

== ENCOUNTER → 2018-09-06 | Outpatient (CLI) | payer OTHER ==
[~2018-09-06] MED LIST changes: -diazePAM 5 MG TAB As Ordered ONE
--- NOTE | 2018-09-16 01:11 | ECWPNPC ---
PATIENT NAME: ADRIANA WHITMAN : 1980 GENDER: FEMALE VISIT DATE: 09/06/2018 DISCHARGE DATE: 09/06/18 1005 VISIT LOCKED DATE TIME: PHYSICIAN: HILARY CADENA MD RESOURCE: HILARY CADENA MD REASON FOR APPOINTMENT 1. TPI BILAT. NECK/SHOULDERS HISTORY OF PRESENT ILLNESS HISTORY OF PRESENT ILLNESS: PAIN THE PATIENT DESCRIBES THE PAIN... FALL RISK SCREENING: SCREENING :NO FALLS REPORTED IN THE LAST YEAR CURRENT MEDICATIONS TAKING VITAMIN D 09266 UNIT CAPSULE 1 CAPSULE ORALLY TAKING IRON 325 (65 FE) MG TABLET 1 TABLET ORALLY ONCE A DAY, NOTES: 0600 TAKING MULTIVITAMIN ADULT - TABLET ORALLY , NOTES: 0600 TAKING TYLENOL 325 MG CAPSULE 1 CAPSULE NEEDED ORALLY EVERY 4 HRS, NOTES: NONE RECETLY TAKING GABAPENTIN 300 MG CAPSULE 1 CAPSULE ORALLY Q8H TID, NOTES: 0600 DISCONTINUED BACLOFEN 10 MG TABLET 1/2 TAB ORALLY TAKE 1/2 TAB AT BEDTIME DISCONTINUED CYMBALTA 30 MG CAPSULE DELAYED RELEASE PARTICLES 1 CAPSULE ORALLY ONCE A DAY DISCONTINUED PERCOCET 5-325 MG TABLET 1 TABLET NEEDED ORALLY EVERY 6 HRS FOR PAIN MEDICATION LIST REVIEWED AND RECONCILED WITH THE PATIENT PAST MEDICAL HISTORY PULMONARY EMBOLISM KIDNEY STONE HEART MURMUR ARTHRITIS CHRONIC BACK PAIN ALLERGIES NSAIDS: CONTRAINDICATED R/T GASTRIC BYPASS - CONTRAINDICATION SURGICAL HISTORY 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 1 SON(S) , 1 DAUGHTER(S) - HEALTHY. NO KNOWN FAMILY HISTORY OF ANY UROLOGICALLY RELATED DISEASES\\\\\\\\\\\\\\/CANCERS. \\\\\\\\NONE DAUGHTER WITH MIGRAINES, \\\\\\\\NMOM R\\\\\\\\\\\\\\/T BRAIN TUMOR. SOCIAL HISTORY GENERAL: TOBACCO USE ARE YOU A:: NEVER SMOKER. OTHERS AT HOME: CHILDREN, BOYFRIEND. DIET: REGULAR, HEALTHY. LANGUAGE LATVIAN. DOMESTIC VIOLENCE NONE. RECREATIONAL DRUG USE DENIES. EXERCISE: WALKS, TREADMILL MATTEO. LEARNING BARRIERS / SPECIAL NEEDS BARRIERS TO LEARNING?NO HEARING IMPAIRED?NO VISION IMPAIRED?NO COGNITIVELY IMPAIRED?NO READINESS TO LEARN?YES LEARNING PREFERENCES?NO LEARNING CAPABILITIES PRESENT?YES EMOTIONAL BARRIERS?NO SPECIAL DEVICES?NO INTERNIST NEEDED?NO PAIN CLINIC PFS, CLERGY, PUBLIC HEALTH REFERRALS HAS THE PATIENT BEEN EDUCATED REGARDING HIS/HER PLAN OF CARE?YES HAS THE PATIENT BEEN EDUCATED REGARDING PAIN, THE RISK FOR PAIN, THE IMPORTANCE OF EFFECTIVE PAIN MANAGEMENT, AND THE PAIN ASSESSMENT PROCESS?YES LATEX QUESTIONNAIRE LATEX ALLERGY : HAVE YOU EVER DEVELOPED ANY TYPE OF REACTION AFTER HANDLING LATEX PRODUCTS SUCH RUBBER GLOVES, CONDOMS, DIAPHRAGMS, BALLOONS, SOCKS, OR UNDERWEAR?NO LATEX ALLERGY : HAVE YOU EVER DEVELOPED ANY TYPE OF REACTION DURING OR AFTER DENTAL APPOINTMENT, VAGINAL/RECTAL EXAMINATION, SURGICAL PROCEDURE, OR ANY OTHER EXPOSURE?NO LATEX RISK : HAVE YOU EVER HAD ANY DIFFICULTY BREATHING OR HIVES AFTER EATING OR HANDLING ANY FRUITS, OR VEGETABLES; SUCH KIWI, BANANAS, STONE FRUITS, OR CHESTNUTSNO LATEX RISK : DO YOU HAVE A PREVIOUS PERSONAL HISTORY OF MORE THAN NINE SURGERIES, SPINA BIFIDA, OR REPEATED CATHERTIZATIONS? NO LATEX RISK : ARE YOU FREQUENTLY EXPOSED TO LATEX PRODUCTS IN YOUR OCCUPATION?NO DATE ASKED : 09/06/2018 CAFFEINE 2-5/DAY. ADVANCE DIRECTIVE ADVANCE DIRECTIVE DISCUSSED WITH PATIENT:YES NO ADVANCED DIRECTIVES, PT DECLINES INFORMATION OR ASSISTANCE FILLING ONE OUT AT THIS TIME 08/12/18 [place] NO ORTHODOXY BELIEFS THAT WOULD IMPACT HEALTH CARE. MARITAL STATUS: .. ALCOHOL SCREENING POINTS: 0, INTERPRETATION: NEGATIVE. 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 SEXUAL HX HAD SEX IN THE LAST 12 MONTHS (VAGINAL, ORAL, OR ANAL)?: NO, HAVE YOU EVER HAD AN STD?: NO. REVIEWED WITH PT 07/04/18 0930 LASREVIEWED WITH PT 07/20/18 1350 BVREVIEWED WITH PT 08/12/18 1358 BV. HOSPITALIZATION/MAJOR DIAGNOSTIC PROCEDURE PULMONARY EMBOLISM S/P LEG FRACTURE 2003 REVIEW OF SYSTEMS REVIEWED BY: PROVIDER: . CONSTITUTIONAL: ANY CHANGE IN YOUR MEDICAL CONDITION? NO . CHILLS NO . FEVER NO . INFECTION: DO YOU HAVE NEW INFECTIONS? NO . DO YOU HAVE HISTORY OF MRSA? NO . MUSCULOSKELETAL: ANY NEW PATTERNS OF PAIN OR NUMBNESS? NO . GASTROENTEROLOGY: ANY NEW CHANGE IN BOWEL CONTROL? NO . GENITOURINARY: ANY NEW CHANGE IN BLADDER CONTROL? NO . IS THERE A CHANCE YOU COULD BE ? NO . HEMATOLOGY/LYMPH: DO YOU TAKE ANY BLOOD THINNERS? (FOR EXAMPLE- COUMADIN, PLAVIX, AGGRENOX, PLATEL, PRADAXA, OR XARELTO) NO . WHEN WAS YOUR LAST DOSE? DATE: TIME: . NEUROLOGY: HAVE YOU FALLEN IN THE PAST 12 MONTHS? NO . ANY NEW EXTREMITY NUMBNESS OR WEAKNESS? NO . CARDIOLOGY: DO YOU HAVE A PACEMAKER OR DEFIBRILLATOR? NO . RESPIRATORY: HAVE YOU BEEN SICK IN THE PAST WEEK? NO . FEVER NO . FLU LIKE SYMPTOMS? NO . COUGH NO . INTEGUMENTARY: DO YOU HAVE ANY RASHES OR OPEN SORES? NO . ALLERGIC/IMMUNO: ARE YOU ALLERGIC TO IV DYE? NO . ANY NEW ALLERGIES? NO . PSYCHIATRIC: DO YOU HAVE THOUGHTS OF HURTING YOURSELF OR SOMEONE ELSE? NO . ARE YOU ABUSED, NEGLECTED, OR IN AN UNSAFE ENVIRONMENT? NO . ENDOCRINOLOGY: ARE YOU DIABETIC? NO . OTHER: DO YOU NEED ANY PRESCRIPTIONS? NO . IF YES, PLEASE LIST: ____ . ANY NEW PROBLEMS WITH YOUR MEDICATIONS? NO . WHEN DID YOU LAST EAT? 09/05/18____ . WHEN DID YOU LAST DRINK? ____529 . WHAT DID YOU LAST DRINK? ____WATER . NAME OF PERSON DRIVING YOU HOME? ____DESTINY J CARLOS . DO YOU HAVE ANY OTHER QUESTIONS OR CONCERNS NO . VITAL SIGNS WT 187.8 LBS, HT 69", BMI 27.73 INDEX, BP 117/75 MM HG, HR 74 /MIN, RR 18 /MIN, TEMP 98.2 F, OXYGEN SAT % 93%, NA INITIALS SC 09:04. ASSESSMENTS MYALGIA, OTHER SITE - M79.18 (PRIMARY) PROCEDURES PN TRIGGER POINT INJECTION WITH STEROIDS PRE PROCEDURE DIAGNOSIS 1. MYALGIA 2. PAIN AT BILATERAL NECK AREA AND BILATERAL SHOULDER AREA POST PROCEDURE DIAGNOSIS 1. MYALGIA 2. PAIN AT BILATERAL NECK AREA AND BILATERAL SHOULDER AREA PROCEDURE TRIGGER POINT INJECTION AT BILATERAL NECK AREA AND BILATERAL SHOULDER AREA SURGEON DR. HILARY CADENA RN ENDOSCOPY NONE ANESTHESIA LOCAL PRE PROCEDURE NOTE THE PATIENT HAS A HISTORY OF CHRONIC PAIN AT THE RIGHT AND LEFT NECK AREA AND RIGHT AND LEFT SHOULDER AREA. I EVALUATE THE PATIENT AND REVIEWED THE CHART. THERE IS EVIDENCE OF BANDS OF TISSUE WITH RESTRICTION OF MOVEMENT AND PRESENCE OF TRIGGER POINT AT THE AFFECTED AREA. I WENT OVER THE RISKS, ALTERNATIVES, AND BENEFITS ASSOCIATED WITH THIS PROCEDURE. THE PATIENT WOULD LIKE TO PROCEED AND GIVE CONSENT TO PERFORMED THE PROCEDURE. THE PATIENT DENIES UNEXPLAINABLE WEIGHT LOSS, FEVER, CHILLS, OR NEW CHANGES IN URINARY OR BOWEL CONTROL DESCRIPTION OF PROCEDURE THE PATIENT WAS BROUGHT TO THE PROCEDURE ROOM AND PLACED IN THE SITTING POSITION. THE AREA WAS CLEANED WITH ALCOHOL. THE PROCEDURE WAS DONE USING ASEPTIC STERILE TECHNIQUE. I CHECKED LATERALITY AND THE LEVEL WHERE THE PROCEDURE WAS GOING TO BE PERFORMED WITH THE PATIENT AND THE SUPPORTING STAFF AT THE MOMENT OF THE TIME OUT IN THE PROCEDURE ROOM. USING A 25-GAUGE NEEDLE, TRIGGER POINTS WERE INJECTED AT THE RIGHT AND LEFT NECK AREA AND RIGHT AND LEFT SHOULDER AREA WITH A TOTAL OF 40 ML OF BUPIVACAINE 0.25% AND KENALOG 40 MG. THERE WAS NO EVIDENCE OF BLOOD, PARESTHESIA OR CEREBROSPINAL FLUID DURING THE PROCEDURE. THE PATIENT WAS SENT TO THE RECOVERY ROOM. THE PATIENT WAS MOVING THE EXTREMITIES AND DOING WELL. THERE WAS NO COMPLICATION DURING THE PROCEDURE POST PROCEDURE NOTE THE PATIENT WILL BE SEEN IN A FOLLOW UP IN THE NEXT FEW WEEKS. INSTRUCTIONS WERE GIVEN, QUESTIONS WERE ANSWERED, AND THE PATIENT EXPRESSED UNDERSTANDING AND AGREES WITH THE PLAN. I, DESI TAMAYO, DOCUMENTED THE ABOVE INFORMATION ACTING A SCRIBE FOR DR. CADENA. I HAVE REVIEWED THE ABOVE DOCUMENT, WRITTEN BY DESI CONTRERAS AND I VERIFY THAT IT IS ACCURATE. PROCEDURE CODES 10694 INJECT TRIGGER POINTS 3/> DISPOSITION & COMMUNICATION FOLLOW UP 3 WEEKS ELECTRONICALLY SIGNED BY HILARY CADENA MD, MD ON 09/14/2018 AT 04:27 PM EDT DISCLAIMER : THIS IS A VISIT SUMMARY EXTRACTED FROM THE [employer] CHART. IT IS NOT A COPY OF THE [employer] PROGRESS NOTE. SANTANA
== END ==
LOC: M PAIN 08:30
PROVIDERS: ATTEND Anesthesiology
DX: M79.18 Myalgia, other site (principal); M54.2 Cervicalgia; M25.511 Pain in right shoulder; M25.512 Pain in left shoulder; M19.90 Unspecified osteoarthritis, unspecified site; Z79.899 Other long term (current) drug therapy; Z88.6 Allergy status to analgesic agent; Z86.711 Personal history of pulmonary embolism; Z86.79 Personal history of other diseases of the circulatory system; Z98.84 Bariatric surgery status
CPT/HCPCS: 20553; J3301

== ENCOUNTER → 2018-10-13 | Outpatient (CLI) | payer OTHER ==
--- NOTE | 2018-11-02 02:20 | ECWPNPC ---
PATIENT NAME: ADRIANA WHITMAN : 1980 GENDER: FEMALE VISIT DATE: 10/13/2018 DISCHARGE DATE: 10/13/18 1517 VISIT LOCKED DATE TIME: PHYSICIAN: TRISTON ELIZABETH RESOURCE: TRISTON ELIZABETH REASON FOR APPOINTMENT 1. POST PROC HISTORY OF PRESENT ILLNESS HISTORY OF PRESENT ILLNESS: HERE FOR POST PROCEDURE F/U.HAD TPI TO NECK/BILATERAL SHOULDERS ON 09/06/18.REPORTING IMPROVED PAIN CONTROL THAT CONTINUES TODAY.RATING PAIN VAS 4/10.HAS DEVELOPED CHRONIC PAIN SINCE WEIGHT LOSS SURGERY APPROXIMATLEY 5 YEARS AGO.SHE WAS TOLD THAT HER CHRONIC PAIN COULD BE CAUSED BY EXCESS TISSUE FROM 200 LB WEIGHT LOSS.SHE WISHES SHE NEVER HAD SURGERY.STATES SHE WAS ABLE TO DO MORE WHEN SHE WAS HEAVY AND DIDNT HAVE PAIN.STATES SHE HAS DEVELOPED PAINFUL VARICOSITIES SINCE GASTRIC BYPASS.HAS BECOME FIXATED ON THIS AND IS DEMONSTRATING SOME SIGNS OF SEVERE ANXIETY.DENIES DEPRESSION.HAD MOOD SWINGS WITH CYMBALTA TRIAL. PAIN THE PATIENT DESCRIBES THE PAIN... FALL RISK SCREENING: SCREENING :NO FALLS REPORTED IN THE LAST YEAR CURRENT MEDICATIONS TAKING VITAMIN D 1000 UNIT TABLET 1 CAPSULE ORALLY DAILY TAKING IRON 325 (65 FE) MG TABLET 1 TABLET ORALLY ONCE A DAY TAKING MULTIVITAMIN ADULT - TABLET ORALLY DAILY TAKING GABAPENTIN 300 MG CAPSULE 1 CAPSULE ORALLY Q8H TID NOT-TAKING TYLENOL 325 MG CAPSULE 1 CAPSULE NEEDED ORALLY EVERY 4 HRS MEDICATION LIST REVIEWED AND RECONCILED WITH THE PATIENT PAST MEDICAL HISTORY PULMONARY EMBOLISM KIDNEY STONE HEART MURMUR ARTHRITIS CHRONIC BACK PAIN NECK AND BILATERAL SHOULDER PAIN-RIGHT GREATER THAN LEFT FRACTURE RIGHT LEG-SCATTERED RIGHT KNEE CAP ALLERGIES NSAIDS: CONTRAINDICATED R/T GASTRIC BYPASS - CONTRAINDICATION CYMBALTA: ALTERATION IN MOOD - SIDE EFFECTS SURGICAL HISTORY 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 1 SON(S) , 1 DAUGHTER(S) - HEALTHY. NO KNOWN FAMILY HISTORY OF ANY UROLOGICALLY RELATED DISEASES\\\\\\\\\\\\\\/CANCERS. \\\\\\\\NONE DAUGHTER WITH MIGRAINES, \\\\\\\\NMOM R\\\\\\\\\\\\\\/T BRAIN TUMOR. SOCIAL HISTORY GENERAL: TOBACCO USE ARE YOU A:: NEVER SMOKER. OTHERS AT HOME: CHILDREN, BOYFRIEND. 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 LANGUAGE MACEDONIAN. DOMESTIC VIOLENCE NONE. RECREATIONAL DRUG USE DENIES. EXERCISE: WALKS, TREADMILL MATTEO. 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 NEEDED?NO PAIN CLINIC PFS, CLERGY, PUBLIC HEALTH REFERRALS HAS THE PATIENT BEEN EDUCATED REGARDING HIS/HER PLAN OF CARE?YES HAS THE PATIENT BEEN EDUCATED REGARDING PAIN, THE RISK FOR PAIN, THE IMPORTANCE OF EFFECTIVE PAIN MANAGEMENT, AND THE PAIN ASSESSMENT PROCESS?YES LATEX QUESTIONNAIRE LATEX ALLERGY : HAVE YOU EVER DEVELOPED ANY TYPE OF REACTION AFTER HANDLING LATEX PRODUCTS SUCH RUBBER GLOVES, CONDOMS, DIAPHRAGMS, BALLOONS, SOCKS, OR UNDERWEAR?NO LATEX ALLERGY : HAVE YOU EVER DEVELOPED ANY TYPE OF REACTION DURING OR AFTER DENTAL APPOINTMENT, VAGINAL/RECTAL EXAMINATION, SURGICAL PROCEDURE, OR ANY OTHER EXPOSURE?NO LATEX RISK : HAVE YOU EVER HAD ANY DIFFICULTY BREATHING OR HIVES AFTER EATING OR HANDLING ANY FRUITS, OR VEGETABLES; SUCH KIWI, BANANAS, STONE FRUITS, OR CHESTNUTSNO LATEX RISK : DO YOU HAVE A PREVIOUS PERSONAL HISTORY OF MORE THAN NINE SURGERIES, SPINA BIFIDA, OR REPEATED CATHERTIZATIONS? NO LATEX RISK : ARE YOU FREQUENTLY EXPOSED TO LATEX PRODUCTS IN YOUR OCCUPATION?NO DATE ASKED : 10/13/2018 CAFFEINE 2-5/DAY. ADVANCE DIRECTIVE ADVANCE DIRECTIVE DISCUSSED WITH PATIENT:YES 10/13/18 PT. DOES NOT HAVE ANY ADVANCED DIRECTIVES AND SHE DECLINES INFORMATION ON HCP AT THIS TIME. AD SABIANIST [id number] ZOROASTRIAN MARITAL STATUS: .. ALCOHOL SCREENING POINTS: 0, INTERPRETATION: NEGATIVE. 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 SEXUAL HX HAD SEX IN THE LAST 12 MONTHS (VAGINAL, ORAL, OR ANAL)?: NO, HAVE YOU EVER HAD AN STD?: NO. REVIEWED WITH PT 07/04/18 0930 LASREVIEWED WITH PT 07/20/18 1350 BVREVIEWED WITH PT 08/12/18 1358 BV. 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 CONSTITUTIONAL: ANY CHANGE IN YOUR MEDICAL CONDITION? NO . CHILLS NO . FEVER NO . INFECTION: DO YOU HAVE NEW INFECTIONS? NO . DO YOU HAVE HISTORY OF MRSA? NO . MUSCULOSKELETAL: ANY NEW PATTERNS OF PAIN OR NUMBNESS? NO . GASTROENTEROLOGY: ANY NEW CHANGE IN BOWEL CONTROL? NO . GENITOURINARY: ANY NEW CHANGE IN BLADDER CONTROL? NO . IS THERE A CHANCE YOU COULD BE ? NO . HEMATOLOGY/LYMPH: DO YOU TAKE ANY BLOOD THINNERS? (FOR EXAMPLE- COUMADIN, PLAVIX, AGGRENOX, PLATEL, PRADAXA, OR XARELTO) NO . WHEN WAS YOUR LAST DOSE? DATE: TIME: . NEUROLOGY: HAVE YOU FALLEN IN THE PAST 12 MONTHS? NO . ANY NEW EXTREMITY NUMBNESS OR WEAKNESS? NO . CARDIOLOGY: DO YOU HAVE A PACEMAKER OR DEFIBRILLATOR? NO . RESPIRATORY: HAVE YOU BEEN SICK IN THE PAST WEEK? NO . FEVER NO . FLU LIKE SYMPTOMS? NO . COUGH NO . INTEGUMENTARY: DO YOU HAVE ANY RASHES OR OPEN SORES? NO . ALLERGIC/IMMUNO: ARE YOU ALLERGIC TO IV DYE? NO . ANY NEW ALLERGIES? NO . PSYCHIATRIC: DO YOU HAVE THOUGHTS OF HURTING YOURSELF OR SOMEONE ELSE? NO . ARE YOU ABUSED, NEGLECTED, OR IN AN UNSAFE ENVIRONMENT? NO . ENDOCRINOLOGY: ARE YOU DIABETIC? NO . OTHER: DO YOU NEED ANY PRESCRIPTIONS? YES . IF YES, PLEASE LIST: GABAPENTIN 300 MGS . ANY NEW PROBLEMS WITH YOUR MEDICATIONS? NO . WHEN DID YOU LAST EAT? ____ . WHEN DID YOU LAST DRINK? ____ . WHAT DID YOU LAST DRINK? ____ . NAME OF PERSON DRIVING YOU HOME? ____ . DO YOU HAVE ANY OTHER QUESTIONS OR CONCERNS NO . VITAL SIGNS WT 179.2 LBS, HT 69", BMI 26.46 INDEX, BP 126/81 MM HG, HR 76 /MIN, RR 18 /MIN, TEMP 98.0 F, OXYGEN SAT % 95%, SAFE IN ENV? (Y/N) Y, NA INITIALS AW 1409, REVIEWED BY: AVA. EXAMINATION GENERAL EXAMINATION: GENERAL AWAKE,ALERT ,PLEAASANT . PSYCH AFFECT NORMAL . LUNGS: LUNG SANCHEZ ARE CLEAR TO AUSCULTATION BILATERALLY. GOOD MOVEMENT OF AIR . HEART: S1, S2 IN A REGULAR RATE AND RHYTHM. NO SIGNIFICANT MURMURS, RUBS OR GALLOPS NOTED . CERVICAL TRIGGER POINTS: CERVICAL AND TRAPEZIUS BILAT..PAIN IS AGGREVATED WITH ROJM NECK. DIAGNOSTIC TESTS REVIEWED MRI C SPINE-12/31/16. ASSESSMENTS MYALGIA, OTHER SITE - M79.18 (PRIMARY) ANXIETY - F41.9 TREATMENT MYALGIA, OTHER SITE REFILL GABAPENTIN CAPSULE, 300 MG, 1 CAPSULE, ORALLY, Q8H TID, 30 DAY(S), 90, REFILLS 2 START XANAX TABLET, 0.25 MG, 1 TABLET, ORALLY, TWICE A DAY PRN MDD2, 30 DAYS, 30, REFILLS 0 NOTES: ISTOP REGISTRY REVIEWED AND DEMONSTRATES COMPLLIANCE. REFERRAL TO:[facility] REASON:HAS EXCESS SKIN AFTER GASTRIC BYPASS SHE WANTS EVALUATION TO POSSIBLY HAVE THIS OFF PREVENTIVE MEDICINE PAIN CLINIC TEACHING: MEDICATIONS PRINTED INFORMATION ON XANAX GIVEN TO AND REVIEWED WITH PT. AND SHE VERBALIZED UNDERSTANDING. AD. PROCEDURE CODES FA211 ESTABILISHED PATIENT [facility] CHARGE DISPOSITION & COMMUNICATION FOLLOW UP 2 MONTHS ELECTRONICALLY SIGNED BY TIMOTHY TERAN ON 11/01/2018 AT 09:00 AM EDT DISCLAIMER : THIS IS A VISIT SUMMARY EXTRACTED FROM THE [employer] CHART. IT IS NOT A COPY OF THE [employer] PROGRESS NOTE. SANTANA
== END ==
LOC: M PAIN 14:15
PROVIDERS: ATTEND Nurse Practitioner Family
DX: M79.18 Myalgia, other site (principal); F41.9 Anxiety disorder, unspecified; M25.511 Pain in right shoulder; M25.512 Pain in left shoulder; R01.1 Cardiac murmur, unspecified; M54.2 Cervicalgia; Z86.711 Personal history of pulmonary embolism; Z87.442 Personal history of urinary calculi; Z98.84 Bariatric surgery status; Z79.899 Other long term (current) drug therapy; Z88.6 Allergy status to analgesic agent; Z88.8 Allergy status to other drugs, medicaments and biological substances

== ENCOUNTER 2018-12-18 12:18 | Emergency (ER) | payer OTHER ==
[~2018-12-18] VITALS: Ht 175.3 cm; Wt 81.3 kg
[2018-12-18 12:19] VITALS: BP 132/72
[2018-12-18] MEDS ORDERED: GABA-843 (12:33)
[2018-12-18] MEDS ORDERED: FERR32TA (12:33)
[2018-12-18] MEDS ORDERED: NALT50TA4 (12:33)
[2018-12-18] MEDS ORDERED: CHOL100029 PO (12:33)
[2018-12-18] MEDS ORDERED: BUPR300T34 (12:33)
[2018-12-18] MEDS ORDERED: ALPR0.25 (12:33)
[2018-12-18] MEDS ORDERED: LIDO5DIS41 TD (13:27)
[2018-12-18] MEDS ORDERED: CYCL5TAB PO (13:27)
[2018-12-18] MEDS ORDERED: LIDOCAINE 5% (LIDODERM) PATCH TD ONE (13:30)
== END 2018-12-18 13:50 | disposition home or self-care (01) ==
LOC: M ED 12:18
DX: M79.605 Pain in left leg (principal); M19.90 Unspecified osteoarthritis, unspecified site

== ENCOUNTER → 2019-01-16 | Outpatient (CLI) | payer OTHER ==
[~2019-01-16] MED LIST changes: +ALPR0.25; -BUPIVACAINE HCL 0.25% 10 ML VIAL As Ordered ONE; -BUPIVACAINE HCL 0.25% 30 ML VIAL As Ordered ONE; +BUPR300T92; +CHOL100029 PO; +CYCL5TAB PO; +FERR32TA; +GABA-843; +LIDO5DIS41 TD; +NALT50TA4; -TRIAMCINOLONE ACETONIDE SUSP 40 MG/ML VIAL (J3301) As Ordered ONE; -oxyCODONE 5MG TAB As Ordered ONE
--- NOTE | 2019-02-06 11:26 | ECWPNPC ---
PATIENT NAME: ADRIANA WHITMAN : 1980 GENDER: FEMALE VISIT DATE: 01/16/2019 DISCHARGE DATE: 01/16/19 1632 VISIT LOCKED DATE TIME: PHYSICIAN: HILARY CADENA MD RESOURCE: HILARY CADENA MD DISCLAIMER : THIS IS A VISIT SUMMARY EXTRACTED FROM THE [employer] CHART. IT IS NOT A COPY OF THE [employer] PROGRESS NOTE. MTDD
== END ==
LOC: M PAIN 14:45
PROVIDERS: ATTEND Anesthesiology
DX: M51.16 Intervertebral disc disorders with radiculopathy, lumbar region (principal); G89.29 Other chronic pain; Z86.711 Personal history of pulmonary embolism; M19.90 Unspecified osteoarthritis, unspecified site; Z98.84 Bariatric surgery status; Z88.6 Allergy status to analgesic agent; Z88.8 Allergy status to other drugs, medicaments and biological substances; Z79.899 Other long term (current) drug therapy

== ENCOUNTER → 2019-01-19 | Outpatient (CLI) | payer OTHER ==
[~2019-01-19] MED LIST changes: +BUPR300T34; -BUPR300T92; +ISOVUE-M 300 61% 15ML VIAL (Q9967) As Ordered ONE; +LIDOCAINE 1% SDV INJ 30 ML VIAL As Ordered ONE; +diazePAM 5 MG TAB As Ordered ONE; +methylPREDNISolone SUSP 40 MG/ML (DEPO-medrol) VIAL (J1030) As Ordered ONE; +oxyCODONE 5MG TAB As Ordered ONE
--- NOTE | 2019-01-19 14:24 | REP ---
Partial lumbar spine series: Three views . History: Injection procedure for pain. Nine seconds of fluoroscopy time is reported. Findings: A sequence of three fluoroscopically obtained last image hold procedural spot radiographs of the lumbar spine document needle position and contrast injection associated with injection procedure. Electronically Signed by Tereso Watson MD 01/19/2019 02:16 P
== END ==
LOC: M PAIN 10:30
PROVIDERS: ATTEND Anesthesiology
DX: M51.16 Intervertebral disc disorders with radiculopathy, lumbar region (principal); M54.2 Cervicalgia; M25.511 Pain in right shoulder; M25.512 Pain in left shoulder; R01.1 Cardiac murmur, unspecified; Z87.442 Personal history of urinary calculi; Z98.84 Bariatric surgery status; Z86.711 Personal history of pulmonary embolism; Z88.6 Allergy status to analgesic agent; Z88.8 Allergy status to other drugs, medicaments and biological substances; Z79.899 Other long term (current) drug therapy
CPT/HCPCS: 62323; J1030; Q9967

== ENCOUNTER → 2019-01-30 | Outpatient (CLI) | payer OTHER ==
[~2019-01-30] MED LIST changes: -ISOVUE-M 300 61% 15ML VIAL (Q9967) As Ordered ONE; -LIDOCAINE 1% SDV INJ 30 ML VIAL As Ordered ONE; -diazePAM 5 MG TAB As Ordered ONE; -methylPREDNISolone SUSP 40 MG/ML (DEPO-medrol) VIAL (J1030) As Ordered ONE; -oxyCODONE 5MG TAB As Ordered ONE
--- NOTE | 2019-02-14 00:51 | ECWPNPC ---
PATIENT NAME: ADRIANA WHITMAN : 1980 GENDER: FEMALE VISIT DATE: 01/30/2019 DISCHARGE DATE: 01/30/19 1407 VISIT LOCKED DATE TIME: PHYSICIAN: TRISTON ELIZABETH RESOURCE: TRISTON ELIZABETH REASON FOR APPOINTMENT 1. 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 PAIN THE PATIENT DESCRIBES THE PAIN... FALL RISK SCREENING: SCREENING :NO FALLS REPORTED IN THE LAST YEAR CURRENT MEDICATIONS TAKING VITAMIN D 1000 UNIT TABLET 1 CAPSULE ORALLY DAILY TAKING IRON 325 (65 FE) MG TABLET 1 TABLET ORALLY ONCE A DAY TAKING MULTIVITAMIN ADULT - TABLET ORALLY DAILY TAKING GABAPENTIN 300 MG CAPSULE 1 CAPSULE ORALLY Q 6 HRS PRN FOR PAIN MDD4 NOT-TAKING FLEXERIL , NOTES: DOES NOT RECALL DOSAGE NOT-TAKING XANAX 0.25 MG TABLET 1 TABLET ORALLY TWICE A DAY PRN MDD2 NOT-TAKING TYLENOL 325 MG CAPSULE 1 CAPSULE NEEDED ORALLY EVERY 4 HRS, NOTES: NOT LATELY MEDICATION LIST REVIEWED AND RECONCILED WITH THE PATIENT PAST MEDICAL HISTORY PULMONARY EMBOLISM KIDNEY STONE HEART MURMUR ARTHRITIS CHRONIC BACK PAIN NECK AND BILATERAL SHOULDER PAIN-RIGHT GREATER THAN LEFT FRACTURE RIGHT LEG-SCATTERED RIGHT KNEE CAP ALLERGIES NSAIDS: CONTRAINDICATED R/T GASTRIC BYPASS - CONTRAINDICATION CYMBALTA: ALTERATION IN MOOD - SIDE EFFECTS SURGICAL HISTORY GASTRIC BYPASS 11/2013 VEIN STRIPPING FAMILY HISTORY FATHER: ALIVE 58 YRS, UNKNOWN MOTHER: 49 YRS, BRAIN TUMOR, DIAGNOSED WITH OTHER MALIGNANT NEOPLASM OF UNSPECIFIED SITE SIBLINGS: ALIVE SON(S): ALIVE DAUGHTER(S): ALIVE MATERNAL GRAND FATHER: CANCER MATERNAL AUNT: DIABETES 2 BROTHER(S) - HEALTHY. 1 SON(S) , 1 DAUGHTER(S) - HEALTHY. NO KNOWN FAMILY HISTORY OF ANY UROLOGICALLY RELATED DISEASES\\\\\\\\\\\\\\/CANCERS. \\\\\\\\NONE DAUGHTER WITH MIGRAINES, \\\\\\\\NMOM R\\\\\\\\\\\\\\/T BRAIN TUMOR. SOCIAL HISTORY GENERAL: TOBACCO USE ARE YOU A:: NEVER SMOKER. OTHERS AT HOME: CHILDREN, BOYFRIEND. 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 LANGUAGE [place]. DOMESTIC VIOLENCE NONE. RECREATIONAL DRUG USE DENIES. EXERCISE: WALKS, TREADMILL MATTEO. LEARNING BARRIERS / SPECIAL NEEDS BARRIERS TO LEARNING?NO HEARING IMPAIRED?NO VISION IMPAIRED?NO COGNITIVELY IMPAIRED?NO READINESS TO LEARN?YES LEARNING PREFERENCES?YES :DEMONSTRATION/VERBAL INSTRUCTION LEARNING CAPABILITIES PRESENT?YES EMOTIONAL BARRIERS?NO SPECIAL DEVICES?NO FABRICATOR INDUSTRIAL FURNACE NEEDED?NO PAIN CLINIC PFS, CLERGY, PUBLIC HEALTH REFERRALS HAS THE PATIENT BEEN EDUCATED REGARDING HIS/HER PLAN OF CARE?YES HAS THE PATIENT BEEN EDUCATED REGARDING PAIN, THE RISK FOR PAIN, THE IMPORTANCE OF EFFECTIVE PAIN MANAGEMENT, AND THE PAIN ASSESSMENT PROCESS?YES LATEX QUESTIONNAIRE LATEX ALLERGY : HAVE YOU EVER DEVELOPED ANY TYPE OF REACTION AFTER HANDLING LATEX PRODUCTS SUCH RUBBER GLOVES, CONDOMS, DIAPHRAGMS, BALLOONS, SOCKS, OR UNDERWEAR?NO LATEX ALLERGY : HAVE YOU EVER DEVELOPED ANY TYPE OF REACTION DURING OR AFTER DENTAL APPOINTMENT, VAGINAL/RECTAL EXAMINATION, SURGICAL PROCEDURE, OR ANY OTHER EXPOSURE?NO DATE ASKED : 10/13/2018 LATEX RISK : HAVE YOU EVER HAD ANY DIFFICULTY BREATHING OR HIVES AFTER EATING OR HANDLING ANY FRUITS, OR VEGETABLES; SUCH KIWI, BANANAS, STONE FRUITS, OR CHESTNUTSNO LATEX RISK : DO YOU HAVE A PREVIOUS PERSONAL HISTORY OF MORE THAN NINE SURGERIES, SPINA BIFIDA, OR REPEATED CATHERIZATIONS? NO LATEX RISK : ARE YOU FREQUENTLY EXPOSED TO LATEX PRODUCTS IN YOUR OCCUPATION?NO CAFFEINE 2-5/DAY. ADVANCE DIRECTIVE ADVANCE DIRECTIVE DISCUSSED WITH PATIENT:YES PT. DOES NOT HAVE ANY ADVANCED DIRECTIVES AND SHE DECLINES INFORMATION ON HCP AT THIS TIME. YARSANI [id number] RASTAFARI MARITAL STATUS: .. ALCOHOL SCREENING POINTS: 0, INTERPRETATION: NEGATIVE. 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 SEXUAL HX HAD SEX IN THE LAST 12 MONTHS (VAGINAL, ORAL, OR ANAL)?: NO, HAVE YOU EVER HAD AN STD?: NO. REVIEWED WITH PT 07/04/18 0930 LASREVIEWED WITH PT 07/20/18 1350 BVREVIEWED WITH PT 08/12/18 1358 BVREVIEWED WITH PT 01/16/19 1456 BV. HOSPITALIZATION/MAJOR DIAGNOSTIC PROCEDURE PULMONARY EMBOLISM S/P LEG FRACTURE 2003 REVIEW OF SYSTEMS REVIEWED BY: PROVIDER: TRISTON AGUIRRE . CONSTITUTIONAL: ANY CHANGE IN YOUR MEDICAL CONDITION? NO . CHILLS NO . FEVER NO . INFECTION: DO YOU HAVE NEW INFECTIONS? NO . DO YOU HAVE HISTORY OF MRSA? NO . MUSCULOSKELETAL: ANY NEW PATTERNS OF PAIN OR NUMBNESS? NO . GASTROENTEROLOGY: ANY NEW CHANGE IN BOWEL CONTROL? NO . GENITOURINARY: ANY NEW CHANGE IN BLADDER CONTROL? NO . IS THERE A CHANCE YOU COULD BE ? NO . HEMATOLOGY/LYMPH: DO YOU TAKE ANY BLOOD THINNERS? (FOR EXAMPLE- COUMADIN, PLAVIX, AGGRENOX, PLATEL, PRADAXA, OR XARELTO) NO . WHEN WAS YOUR LAST DOSE? DATE: TIME: . NEUROLOGY: HAVE YOU FALLEN IN THE PAST 12 MONTHS? NO . ANY NEW EXTREMITY NUMBNESS OR WEAKNESS? RIGHT LEG TINGLING AND NUMBNESS . CARDIOLOGY: DO YOU HAVE A PACEMAKER OR DEFIBRILLATOR? NO . RESPIRATORY: HAVE YOU BEEN SICK IN THE PAST WEEK? NO . FEVER NO . FLU LIKE SYMPTOMS? NO . COUGH NO . INTEGUMENTARY: DO YOU HAVE ANY RASHES OR OPEN SORES? NO . ALLERGIC/IMMUNO: ARE YOU ALLERGIC TO IV DYE? NO . ANY NEW ALLERGIES? NO . PSYCHIATRIC: DO YOU HAVE THOUGHTS OF HURTING YOURSELF OR SOMEONE ELSE? NO . ARE YOU ABUSED, NEGLECTED, OR IN AN UNSAFE ENVIRONMENT? NO . ENDOCRINOLOGY: ARE YOU DIABETIC? NO . OTHER: DO YOU NEED ANY PRESCRIPTIONS? TO DISCUSS . IF YES, PLEASE LIST: ____ . ANY NEW PROBLEMS WITH YOUR MEDICATIONS? NO . WHEN DID YOU LAST EAT? ____ . WHEN DID YOU LAST DRINK? ____ . WHAT DID YOU LAST DRINK? ____ . NAME OF PERSON DRIVING YOU HOME? ____ . DO YOU HAVE ANY OTHER QUESTIONS OR CONCERNS NO . VITAL SIGNS WT 176.2 LBS, HT 69", BMI 26.02 INDEX, BP 128/80 MM HG, HR 63 /MIN, RR 18 /MIN, TEMP 97.4 F, OXYGEN SAT % 100%, NA INITIALS AW 1306, REVIEWED BY: EM. EXAMINATION GENERAL EXAMINATION: GENERAL ALERT,NO DISTRESS . PSYCH AFFECT NORMAL . LUNGS: LUNG SOUNDS ARE CLEAR . HEART: HEART RATE REGULAR . MUSCULOSKELETAL: MST 5/5 BILAT. LOWER EXTREMITIES . LUMBAR SACRAL SPINE TENDERNESS OVER RIGHT SIJ.POSITIVE SLR LEFT FOR RIGHT LEG RADICULAR SYMPTOMS. DIAGNOSTIC TESTS REVIEWEDMRI L/S SPINE-2019. ASSESSMENTS LUMBAR DISC DISPLACEMENT WITHOUT MYELOPATHY - M51.26 (PRIMARY) SACROILIITIS - M46.1 TREATMENT LUMBAR DISC DISPLACEMENT WITHOUT MYELOPATHY CONTINUE GABAPENTIN CAPSULE, 300 MG, 1 CAPSULE, ORALLY, Q 6 HRS PRN FOR PAIN MDD4 START NORCO TABLET, 5-325 MG, 1 TABLET NEEDED, ORALLY, EVERY 6 HRS PRN MDD4, 30 DAYS, 30, REFILLS 0 NOTES: RIGHT SIJ , ISTOP REGISTRY REVIEWED AND DEMONSTRATES COMPLLIANCE. BRINGS IN MEDICATIONS WHICH IS APPROPRIATE FOR WHAT WAS DISPENSED. RECENT URINE TOXICOLOGY REVIEWED. NO UNAUTHORIZED MEDICATIONS. NO ILLICIT SUBSTANCES AND PRESCRIBED MEDICATIONS WERE PRESENT. OTHERS NOTES: SACROILIAC JOINT PAIN MATERIAL WAS PRINTED. PROCEDURE CODES FA211 ESTABILISHED PATIENT [facility] CHARGE DISPOSITION & COMMUNICATION FOLLOW UP POST (REASON: RIGHT SIJ) ELECTRONICALLY SIGNED BY TIMOTHY TERAN ON 02/13/2019 AT 12:48 PM EDT DISCLAIMER : THIS IS A VISIT SUMMARY EXTRACTED FROM THE [employer] CHART. IT IS NOT A COPY OF THE [employer] PROGRESS NOTE. LIBERTADD
== END ==
LOC: M PAIN 13:15
PROVIDERS: ATTEND Nurse Practitioner Family
DX: M51.26 Other intervertebral disc displacement, lumbar region (principal); M46.1 Sacroiliitis, not elsewhere classified; Z86.711 Personal history of pulmonary embolism; Z98.84 Bariatric surgery status; Z88.6 Allergy status to analgesic agent; Z88.8 Allergy status to other drugs, medicaments and biological substances; Z79.899 Other long term (current) drug therapy

== ENCOUNTER 2019-06-21 15:07 | Emergency (ER) | payer OTHER ==
[~2019-06-21] VITALS: Ht 175.3 cm; Wt 87.9 kg
[~2019-06-21 15:07] MED LIST changes: -BUPR300T34; +BUPR300T92
[2019-06-21] MEDS ORDERED: MULTCAP PO (15:17)
[2019-06-21] MEDS ORDERED: LIDOCAINE 5% (LIDODERM) PATCH TD ONE (20:30)
[2019-06-21] MEDS ORDERED: diazePAM 2 MG TAB PO ONE (20:30)
[2019-06-21] MEDS ORDERED: CYCLOBENZAPRINE 10 MG TAB PO ONE (20:30)
[2019-06-21] MEDS ORDERED: KETOROLAC 60 MG/2 ML VIAL (J1885) IM ONE (20:30)
[2019-06-21] MEDS ORDERED: **NOTE PATIENT COMMENT** MISC XX SCH (21:00)
[2019-06-21] MEDS ORDERED: NORCO, ANEXSIA 5/325MG TABLET (HYDROcodone/ACETAMINOPHEN) PO ONE (22:30)
[2019-06-21] MEDS ORDERED: NORCO 5/325MG TABLET (BULK FOR ED) PO ONE (23:00)
[2019-06-21 23:39] VITALS: BP 155/96
== END 2019-06-21 23:40 | disposition home or self-care (01) ==
LOC: M ED 15:07
DX: S46.802A Unspecified injury of other muscles, fascia and tendons at shoulder and upper arm level, left arm, initial encounter (principal); G89.29 Other chronic pain; M54.5 Low back pain; Z79.84 Long term (current) use of oral hypoglycemic drugs; Z79.899 Other long term (current) drug therapy
CPT/HCPCS: 96372; 99283; J1885

== ENCOUNTER → 2019-06-29 | Outpatient (CLI) | payer OTHER ==
[~2019-06-29] MED LIST changes: +MULTCAP PO
--- NOTE | 2019-06-29 18:16 | REPVR ---
PROCEDURE INFORMATION: Exam: MR Cervical Spine Without Contrast Exam date and time: 06/29/2019 4:28 PM Age: 38 years old Clinical indication: Radicular pain (radiculopathy); Cervical region; Additional info: Cervical radiculopathy TECHNIQUE: Imaging protocol: Multiplanar magnetic resonance images of the cervical spine without contrast. COMPARISON: XA FLUORO GUIDE SPINE INJECTION 01/19/2019 11:28 AM FINDINGS: Vertebrae: No spondylolisthesis. Spinal cord: No abnormal spinal cord signal. C2-C3: Uncovertebral hypertrophy with the moderate to severe left neural foraminal narrowing. No spinal canal stenosis. C3-C4: Uncovertebral hypertrophy with mild bilateral neural foraminal narrowing. C4-C5: Moderate right neural foraminal narrowing. Mild disc bulge. Uncovertebral hypertrophy. C5-C6: Disc bulge and uncovertebral hypertrophy with the severe bilateral neural foraminal narrowing. Moderate spinal canal stenosis. C6-C7: Disc bulge. Uncovertebral hypertrophy. Severe bilateral neural foraminal narrowing. No spinal canal stenosis. C7-T1: No significant disc disease. No significant spinal stenosis. Other bones/joints: No abnormal bone marrow signal. Vertebral arteries: Expected flow voids in the vertebral arteries. Soft tissues: Unremarkable. IMPRESSION: Multilevel degenerative disc disease and uncovertebral hypertrophy with neural foraminal narrowing. Moderate to severe left neural foraminal narrowing at C2-C3, mild bilateral C3-C4, moderate right C4-C5, severe bilateral C5-C6 and C6-C7. Moderate spinal canal stenosis at C5-C6. Electronically signed by: Elder Steen On 06/29/2019 18:16:43 PM
== END ==
LOC: M RAD 16:18
PROVIDERS: ATTEND Orthopaedic Surgery Orthopaedic Surgery of the Spine
DX: M48.02 Spinal stenosis, cervical region (principal); M50.31 Other cervical disc degeneration, high cervical region; M50.321 Other cervical disc degeneration at C4-C5 level; M50.323 Other cervical disc degeneration at C6-C7 level; M54.12 Radiculopathy, cervical region

== ENCOUNTER 2020-08-16 23:47 | Inpatient (IN) | payer MEDICAID, OTHER ==
[~2020-08-16] VITALS: Ht 175.3 cm; Wt 87.9 kg
[~2020-08-16 23:47] MED LIST changes: +GABA-282 PO; -GABA-843
[2020-08-17] MEDS ORDERED: DEBL1TAB PO (00:02)
[2020-08-17] MEDS ORDERED: ONDA-83 PO (00:02)
[2020-08-17] MEDS ORDERED: IBUP-1022 PO (00:02)
[2020-08-17] MEDS ORDERED: FERR324T21 PO (00:02)
[2020-08-17] MEDS ORDERED: QUET50TA3 PO (00:02)
[2020-08-17] MEDS ORDERED: PARO20TA3 PO (00:02)
[2020-08-17 01:43] LABS: HEMATOCRIT 37.7 % (36.0-47.0); HEMOGLOBIN 11.2 g/dl (12.0-15.5); MEAN CORPUSCULAR HEMOGLOBIN 25.1 pg (27.0-33.0); MEAN CORPUSCULAR HGB CONC 29.7 g/dl (32.0-36.5); MEAN CORPUSCULAR VOLUME 84.5 fl (80.0-96.0); PLATELET COUNT, AUTOMATED 273 10^3/uL (150-450); RED BLOOD COUNT 4.46 10^6/uL (4.00-5.40); WHITE BLOOD COUNT 7.4 10^3/uL (4.0-10.0)
[2020-08-17] MEDS ORDERED: BUTA-198 PO (01:55)
[2020-08-17] MEDS ORDERED: HYDR-3716 PO (01:55)
[2020-08-17 02:10] LABS: AMPHETAMINES LEVEL URINE NEGATIVE (NEGATIVE); BARBITURATES URINE POSITIVE (NEGATIVE); BENZODIAZEPINES URINE NEGATIVE (NEGATIVE); CANNABINOIDS URINE NEGATIVE (NEGATIVE); COCAINE METABOLITE URINE NEGATIVE (NEGATIVE); METHADONE URINE NEGATIVE (NEGATIVE); OPIATES URINE NEGATIVE (NEGATIVE); PHENCYCLIDINE URINE NEGATIVE (NEGATIVE)
[2020-08-17 02:19] LABS: ACETAMINOPHEN LEVEL < 2.0 UG/ML (10.0-30.0); ALBUMIN 3.7 GM/DL (3.2-5.2); ALT/SGPT 25 U/L (12-78); BILIRUBIN,DIRECT < 0.1 MG/DL (0.0-0.2); BILIRUBIN,TOTAL 0.2 MG/DL (0.2-1.0); BLOOD UREA NITROGEN 11 MG/DL (7-18); CALCIUM LEVEL 8.7 MG/DL (8.5-10.1); CARBON DIOXIDE LEVEL 32 MEQ/L (21-32); CHLORIDE LEVEL 107 MEQ/L (98-107); CREATININE FOR GFR 0.67 MG/DL (0.55-1.30); ETHYL ALCOHOL (ETHANOL) < 0.003 % (0.000-0.010); GLOMERULAR FILTRATION RATE > 60.0 (>58); GLUCOSE, FASTING 89 MG/DL (70-100); SALICYLATE LEVEL 1.9 MG/DL (5.0-30.0); SODIUM LEVEL 141 MEQ/L (136-145); TOTAL PROTEIN 7.3 GM/DL (6.4-8.2)
[2020-08-17] MEDS ORDERED: MOM 30ML SUSPENSION UDC PO PRN (03:35)
[2020-08-17] MEDS ORDERED: traZODone 50 MG TAB PO PRN (03:35)
[2020-08-17] MEDS ORDERED: MAALOX 30 ML SUSP *UDC PO PRN (03:35)
[2020-08-17 04:55] LABS: RSV AMPLIFICATION NEGATIVE (NEGATIVE)
[2020-08-17] MEDS: ACETAMINOPHEN TAB 650MG DOSE (2X325MG) PO PRN ×3 (05:30→20:31)
[2020-08-17 06:10] VITALS: BP 139/92
[2020-08-17] MEDS ORDERED: INFLUENZA QUADRIVALENT PF VACCINE 0.5ML SYRINGE IM ONE (09:00)
--- NOTE | 2020-08-17 09:00 | HPEPDOC ---
[facility] Medical History & Physical Date of Admission August 17, 2020 Date of Service: August 17, 2020 Primary Care Physician: José Luis Bernal Attending Physician: ALIX VELASQUEZ DO History and Physical CHIEF COMPLAINT: Concerns regarding suicidal ideations HISTORY OF PRESENT ILLNESS: . The patient has been having a difficult time, dropped down to the river, and needs some remarks that her ex-boyfriend suggestive of suicidal intent. By the time she was picked up by the police and brought to the ED she denies any suicidal or homicidal ideations. Nevertheless, she was admitted to the inpatient mental health unit for further evaluation. CODE STATUS: Full code PAST MEDICAL HISTORY: Provoked pulmonary embolism status post right leg fracture & shattered kneecap Kidney stone Arthritis Chronic back pain status post multiple surgeries PAST SURGICAL HISTORY: Gastric bypass 2014 Drains stripping Lumbar spine surgery x2 January 2019 Cervical spine surgery in August 2019 SOCIAL HISTORY: She does not smoke, only drinks a glass of wine perhaps 1-2 times a month. Denies any illicit or recreational drug use. Denies marijuana use. FAMILY HISTORY: Mother at the age of 49 with brain tumor. Otherwise has had a few additional family members with unspecified cancer. REVIEW OF SYSTEMS: Constitutional: Patient denies fevers, chills, night sweats, recent weight gain/loss. HEENT: Patient denies blurred or double vision, transient visual disturbances, postnasal drip, epistaxis, sore throat, difficulty chewing or swallowing food. Cardiovascular: Patient denies chest discomfort/pain, palpitations, exertional dyspnea, orthopnea, edema of the extremities, claudication. Respiratory: Patient denies dyspnea, wheezing, cough, hemoptysis, sputum production. Gastrointestinal: Patient denies nausea, vomiting, diarrhea, constipation, abdominal pain, melena, hematochezia, hematemesis, jaundice. PHYSICAL EXAMINATION: General: Awake, alert, oriented 3. She is in no acute distress. HEENT: Head normocephalic atraumatic, conjunctiva are pink, sclera are nonicteric, buccal mucosa is pink and moist with no lesions in the oropharynx. Hearing is grossly intact to conversation. Respiratory: Clear to auscultation bilaterally with no wheezes, rales, or rhonchi. Cardiovascular: Regular rate and rhythm, with no rubs, gallops, or murmur. Abdomen: Soft, nontender, nondistended, no hepatosplenomegaly appreciated. Bowel sounds present. Extremities: 2+ pulses in the radial and dorsalis pedis bilaterally. No evidence of clubbing or cyanosis. ASSESSMENT/PLAN: Concerns for suicidal ideation/depression -Management per recommendations from the psychiatry team Chronic pain -Not currently taking any medications at this time. She did have a few prescriptions for narcotics after her surgeries, but these were not continued after her rehabilitation. Status post gastric bypass surgery -Recommend daily vitamin - In the chart it appears that she is supposed to take iron supplementation, but she has not taken this in quite a while. This can be followed up with her PCP on an outpatient basis. Vital Signs Vital Signs Date Time Temp Pulse Resp B/P (MAP) Pulse Ox O2 Delivery O2 Flow Rate FiO2 08/17/20 06:10 99.2 108 18 139/92 (108) 99 Room Air Laboratory Data Labs 24H Laboratory Tests 2 08/17/20 01:28: Nucleated Red Blood Cells % (auto) 0.0, Anion Gap 2L, Glomerular Filtration Rate > 60.0, Calcium Level 8.7, Total Bilirubin 0.2, Direct Bilirubin < 0.1, Aspartate Amino Transf (AST/SGOT) 23, Alanine Aminotransferase (ALT/SGPT) 25, Alkaline Phosphatase 78, Total Protein 7.3, Albumin 3.7, Albumin/Globulin Ratio 1.0L, Thyroid Stimulating Hormone (TSH) 1.910, Salicylates Level 1.9L, Urine Opiates Screen NEGATIVE, Urine Methadone Screen NEGATIVE, Acetaminophen Level < 2.0L, Urine Barbiturates Screen POSITIVEH, Urine Phencyclidine Screen NEGATIVE, Urine Amphetamines Screen NEGATIVE, Urine Benzodiazepines Screen NEGATIVE, Urine Cocaine Metabolite Screen NEGATIVE, Urine Cannabinoids Screen NEGATIVE, Ethyl Alcohol Level < 0.003 08/17/20 04:11: Coronavirus (COVID-19)(PCR) NEGATIVE, Influenza Type A (RT-PCR) NEGATIVE, Influenza Type B (RT-PCR) NEGATIVE, Respiratory Syncytial Virus (PCR) NEGATIVE CBC/BMP Laboratory Tests 08/17/20 01:28 Home Medications Scheduled Ferrous Gluconate (Ferrous Gluconate) 324 Mg Tablet, 324 MG PO BID Gabapentin (Gabapentin) 300 Mg Capsule, 300 MG PO TID Norethindrone (Deblitane) 0.35 Mg Tablet, 1 TAB PO DAILY Paroxetine HCl (Paroxetine HCl) 20 Mg Tablet, 20 MG PO DAILY Scheduled PRN Butalb/Acetaminophen/Caffeine (Cukbsz-Qpnrgnho-Bjgx 50-325-40) 1 Each Tablet, 1 TAB PO QID PRN for HEADACHE Hydrocodone/Acetaminophen (Hydrocodone-Acetamin 7.5-325) 1 Each Tablet, 1 TAB PO Q6H PRN for PAIN Ondansetron HCl (Ondansetron HCl) 4 Mg Tablet, 4 MG PO TID PRN for NAUSEA OR VOMITING Allergies Coded Allergies: No Known Allergies (Unverified , 12/18/18) A-FIB/CHADSVASC A-FIB History Current/History of A-Fib/PAF?: No ALIX VELASQUEZ DO August 17, 2020 09:00
[2020-08-17] MEDS: MULTIVITAMINS/MINERALS THERAP 1 TAB PO SCH (10:21)
[2020-08-17 16:15] VITALS: BP 127/73
--- NOTE | 2020-08-17 23:01 | MHHPE ---
[facility] HISTORY AND PHYSICAL DATE OF ADMISSION: 08/16/2020 This is a video assessment for the bulk of it and was completed with a [id number] assessment later on. VITAL SIGNS: Blood pressure 127/73, pulse 93, temperature 98.8 CHIEF COMPLAINT: Feels upset. SUBJECTIVE: She is 40 years old. She has two children, a 20-year-old and a 15-year-old. The three of them live together. She has an ex-boyfriend, Jin. The patient is upset she was brought here and admitted, says had gone to see her ex-boyfriend, Jin, and they had been talking about various things, including her mother. Patient's mother late July, 18 years ago, says she misses her, and that she confides in Jin, including after their breakup. She says they broke up, per Jin, late April, but she thought that they were working things out. Sayrk was at his place yesterday talking about these matters and then when he suggested that they were not together anymore, told that this was finalized, and she left. Said she has, on occasions, gone by the river locally, as she and her mother used to spend quite a bit of time there. Says Jin called her, asked her where she was, she told him, he asked about the river, she says she commented on it, and that it was quick flowing and high. She says he then told her that he was on his way and police were there as well and they brought her to the hospital. She denies that she had ever suggested that she was going to harm herself or jump into the river. Says had not alluded to harming herself in any way. She says she had mentioned that she did not think that they could be friends anymore either. She was confiding in him when all of this happened. Says after they had broken up a couple of months ago, they still saw each other and she felt that she was being "used." Says friends had pointed it out to her as well, but that she had not fully accepted that opinion. She denies that she feels depressed. Says gets stressed at times. Sleep is fair, at times has a hard time because of pain, has neck and back pain, has had surgery there, metal plates. Says may have another one. Says she is not sure when that may take place. The last surgery was last year around August. Says this was during the beginnings of the pandemic where she had been instructed by the orthopedic surgeon in [place] to go to the nearest hospital, which is [facility], and she was transferred from there directly to be operated upon. She spoke about the people at [facility] being upset with her as she was coming in during the pandemic. Prior surgery was the previous year, 2018. Sayrk has struggled with pain for several years and had gone to several clinicians and emergency rooms (ERs), felt that she was not believed, says she finally saw the orthopedist in [place]. 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 Has been working with her for the last several months. Has done similar work in the past. Says enjoys her work. Appetite is okay. Sayrk tends to focus okay, but acknowledges that there are times when in pain and that impacts her mood as well. Has friends, close friends, particularly a couple, including at work. Says confides with some of them. Some are aware of her relationship with Jin. She and Jin were together for the better part of last year. She indicates he decided to break up late April. She had wished that they continue. Had been on fluoxetine for a short while. Sayrk was given it after the breakup late April, as her primary care thought that it may help her cope with her difficulties. Says took it for a short while, did not notice any changes, has not taken it for more than a month now. No history consistent with hypomania or rolando. No obsessions or compulsions. No history consistent with posttraumatic stress disorder. PAST PSYCHIATRIC HISTORY: None formally. No history of inpatient hospitalizations nor any suicide attempts. FAMILY PSYCHIATRIC HISTORY: Denies any. MEDICAL HISTORY: Has history of back and neck pain, has had surgery there, chronic pain, has occasionally used hydrocodone. More recently used a combination of butalbital, acetaminophen and caffeine. Says recently has cut it down as well. She has a history of gastric bypass surgery from a few years ago, had lost considerable weight. SUBSTANCE ABUSE HISTORY: Denies any. SOCIAL HISTORY: She did not go into details, says was essentially raised by her mother. Says they lived in several places. The patient was born in [place]. Says her biological father was not much in the picture. She tried having a relationship with him when she was an adult, but says that did not work out. Mother 18 years ago. 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 She was with the father of her two children for about six years. Says he cheated on her and that relationship ended. They occasionally maintain contact with their father, the children. She was with another partner for about 13 years until recently, within the last couple of years. Says maintains contact with him. She and Jin were together for the better part of last year, broke up at the end of April, though she essentially carried on, believing that the relationship was being worked upon until yesterday. Says has close friends, some of whom she confides in. MENTAL STATUS EXAMINATION: Neat, initially somewhat guarded, but more relaxed as the interview proceeded. No agitation. No psychomotor retardation. Mildly irritable when first seen, but considerably more relaxed as the interview proceeded. No abnormal movements noted. She is coherent. Affect restricted but reactive, later somewhat broader. Denies any suicidal thoughts or intents. No homicidal ideas or intents. No evidence of any psychosis. Cognition is grossly intact. Judgment, insight fair. Intellect average. No fluctuation of consciousness. ASSESSMENT: 1. Adjustment disorder with depressed mood. 2. Rule out depressive disorder. 3. Break up of relationship. 4. Chronic pain, possibly upcoming surgery. Has been stressed, particularly in relation to the breakup of her relationship with her ex-boyfriend, Jin and different views of the relationship. She had wished that it was continued and that they were "working on things." His view has apparently been different. PLAN: She is admitted to inpatient psychiatry unit. We will look at obtaining collateral information. I will hold off on starting an antidepressant just yet, though would suggest considering Cymbalta if she is to go on an antidepressant. She will receive a medicine consultation, if indicated. She will be discharged with followup once she is stable. She wishes to be discharged before Wednesday, as wants to be with the child that she looks after. Says the child does not do well with change. We will look at obtaining collateral information. She is aware it is possible consider discharge if she is felt to be safe within the next 48 hours or so. I saw her [id number] at the [facility], reiterated the assessment and the treatment plan. The assessment took 60 minutes.
[2020-08-18 06:26] VITALS: BP 129/63
[2020-08-18] MEDS: MULTIVITAMINS/MINERALS THERAP 1 TAB PO SCH (08:31)
[2020-08-18] MEDS: ACETAMINOPHEN TAB 650MG DOSE (2X325MG) PO PRN (08:32)
--- NOTE | 2020-08-20 10:45 | MHDS ---
[facility] DISCHARGE SUMMARY DATE OF ADMISSION: 08/16/2020 DATE OF DISCHARGE: 08/18/2020 DIAGNOSIS ON DISCHARGE: Adjustment disorder with depressed mood. MENTAL STATUS EXAMINATION AT THE TIME OF DISCHARGE: She is neat, she is cooperative, no agitation, no psychomotor retardation, she is coherent. Affect is fairly broad, broader than yesterday. She denies any thoughts of harming herself or anyone else, no evidence of any psychosis. Cognition is grossly intact. Judgment is good, insight improved. HISTORY OF PRESENT ILLNESS: She is 40 years old, has two children, a 20-year-old and a 15-year-old, they all live together. She was brought in and hospitalized, as she had gone to see her ex-boyfriend, and they had been talking about various things, including the patient's mother's , which occurred 18 years ago in July. Please refer to my admission summary for details related to the circumstances of the admission, background history, past history, and mental status exam at the time of hospitalization. HOSPITAL COURSE: The patient was hospitalized and she has been consistent in denying any suicidal thoughts or intents, felt that her ex-boyfriend, whom I had referred to as Jin in the previous note, I understand his name is Abelardo, may have overreacted, she feels, when she had left his place a couple of days ago. 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 She indicated she was prepared for followup upon recommendation, such as seeing a therapist. During the stay here, generally did well, there were no major behavioral concerns, and the staff obtained collateral information from her ex-boyfriend. We also spoke with the patient's friend, Manjit, who has agreed to be with the patient for the next few days, Jimmy Sherry finds her reliable, and helps her. Given the above, and a discussion of the safety plan, it is decided to discharge the patient today, as she is not thought to be an acute danger to herself or others at this point. She has agreed to be referred to see a therapist, and we will help with arrangements tomorrow, via the process planner, as it is not possible today, it is Nick. She is not discharged on any psychotropic medication to be taken consistently. DIAGNOSIS ON DISCHARGE: Please see above. MENTAL STATUS EXAMINATION AT THE TIME OF DISCHARGE: Please see above. She is also aware of the emergency services available locally, and of accessing them. The discharge planning took about 25 minutes.
== END 2020-08-18 16:52 | disposition home or self-care (01) | DRG 754 ==
LOC: M ED 23:47 → M ED INP 23:48 → M PSY 08-17 05:22
PROVIDERS: ADMIT Psychiatry & Neurology Psychiatry; ATTEND Psychiatry & Neurology Psychiatry
DX: F43.21 Adjustment disorder with depressed mood (principal); R45.851 Suicidal ideations; M06.9 Rheumatoid arthritis, unspecified; Z87.442 Personal history of urinary calculi; Z98.84 Bariatric surgery status; M54.9 Dorsalgia, unspecified; G89.29 Other chronic pain; Z20.822 Contact with and (suspected) exposure to COVID-19; Z79.899 Other long term (current) drug therapy; Z63.5 Disruption of family by separation and divorce

== ENCOUNTER → 2021-02-20 | Outpatient (CLI) | payer OTHER ==
[~2021-02-20] MED LIST changes: +BUTA-198 PO; +DEBL1TAB PO; +FERR324T21 PO; +HYDR-3716 PO; +IBUP-1022 PO; +ONDA-83 PO; +PARO20TA3 PO; +QUET50TA4 PO
== END ==
LOC: M PAIN 08:30
PROVIDERS: ATTEND Anesthesiology
DX: M79.18 Myalgia, other site (principal); M96.1 Postlaminectomy syndrome, not elsewhere classified; M47.812 Spondylosis without myelopathy or radiculopathy, cervical region; Z86.711 Personal history of pulmonary embolism; R01.1 Cardiac murmur, unspecified; K21.9 Gastro-esophageal reflux disease without esophagitis; Z98.84 Bariatric surgery status; Z79.899 Other long term (current) drug therapy; Z88.6 Allergy status to analgesic agent; Z88.8 Allergy status to other drugs, medicaments and biological substances

== ENCOUNTER → 2021-03-20 | Outpatient (CLI) | payer OTHER ==
[~2021-03-20] MED LIST changes: +PROHANCE 279.3MG/ML 15ML VIAL As Ordered ONE; +PROHANCE 279.3MG/ML 5ML VIAL As Ordered ONE
--- NOTE | 2021-03-20 19:56 | REPVR ---
PROCEDURE INFORMATION: Exam: MR Cervical Spine Without and With Contrast Exam date and time: 03/20/2021 5:59 PM Age: 40 years old Clinical indication: Neck and back pain TECHNIQUE: Imaging protocol: Multiplanar magnetic resonance images of the cervical spine without and with contrast. Contrast material: PROHANCE; Contrast volume: 17 ml; Contrast route: INTRAVENOUS (IV); COMPARISON: MRI-Spine,Cervical without con 06/29/2019 5:04 PM FINDINGS: Chronic ACDF changes at C5-C6. Cervical vertebral body heights are intact. The dens is intact. No abnormal marrow signal. No cord compression, expansion, or abnormal cord signal. Visualized structures of the posterior fossa are unremarkable. Soft tissues are unremarkable. Approximately 1.7 cm T2 hyperintense cyst in the left lobe of the thyroid gland. C2-C3: Facet hypertrophy causes mild left foraminal narrowing. No significant canal narrowing. C3-C4: Posterior disc protrusion and uncovertebral spurring cause mild canal narrowing with moderate right and mild left foraminal narrowing. C4-C5: Posterior disc protrusion and uncovertebral spurring cause mild canal narrowing with moderate right and mild left foraminal narrowing. C5-C6: Status post ACDF. Uncovertebral spurring causes mild bilateral foraminal narrowing. No significant canal narrowing. C6-C7: Uncovertebral spurring causes moderate right and moderate to severe left foraminal narrowing. C7-T1: Uncovertebral spurring causes mild right and moderate left foraminal narrowing. No significant canal narrowing. IMPRESSION: 1. 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 2. Approximately 1.7 cm T2 hyperintense cyst in the left lobe of the thyroid gland. Recommend further evaluation with thyroid ultrasound. Electronically signed by: Chevy Reyes On 03/20/2021 19:55:36 PM
--- NOTE | 2021-03-20 21:15 | REPVR ---
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 Contrast material: PROHANCE; Contrast volume: 17 ml; Contrast route: INTRAVENOUS (IV); COMPARISON: XA FLUORO GUIDE SPINE INJECTION 01/19/2019 11:28 AM FINDINGS: Chronic postoperative changes compatible with posterior instrumented fusion and interbody fusion at L4-L5, and interbody fusion at L5-S1. Multilevel Schmorl's node phenomena. No abnormal marrow signal. Lumbar vertebral body heights are maintained. No cord compression. No abnormal cord signal. Conus medullaris terminates at the L1 level. Paravertebral soft tissues are unremarkable. L1-L2: No significant canal or foraminal narrowing. L2-L3: Broad-based disc bulge and facet hypertrophy cause mild left foraminal narrowing. No significant canal narrowing. L3-L4: Broad-based disc bulge and facet hypertrophy cause mild bilateral foraminal narrowing. No significant canal narrowing. L4-L5: Status post fusion. Facet hypertrophy causes residual mild right foraminal narrowing. No significant canal narrowing. L5-S1: Status post fusion. No significant canal or foraminal narrowing. 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 Electronically signed by: Chevy Reyes On 03/20/2021 21:14:41 PM
== END ==
LOC: M RAD 15:49
PROVIDERS: ATTEND Anesthesiology
DX: M96.1 Postlaminectomy syndrome, not elsewhere classified (principal); M79.18 Myalgia, other site; M47.816 Spondylosis without myelopathy or radiculopathy, lumbar region; M47.817 Spondylosis without myelopathy or radiculopathy, lumbosacral region; M48.061 Spinal stenosis, lumbar region without neurogenic claudication; M50.21 Other cervical disc displacement, high cervical region; M25.78 Osteophyte, vertebrae; E04.1 Nontoxic single thyroid nodule
CPT/HCPCS: 72156; 72158; A9576

== ENCOUNTER → 2021-04-23 | Outpatient (CLI) | payer OTHER ==
[~2021-04-23] MED LIST changes: -PROHANCE 279.3MG/ML 15ML VIAL As Ordered ONE; -PROHANCE 279.3MG/ML 5ML VIAL As Ordered ONE
== END ==
LOC: M LABSMTC 11:43
PROVIDERS: ATTEND Anesthesiology
DX: Z01.812 Encounter for preprocedural laboratory examination (principal); Z11.52 Encounter for screening for COVID-19

== ENCOUNTER → 2021-04-23 | Outpatient (CLI) | payer OTHER | LOC: M PAIN 10:00 | PROVIDERS: ATTEND Anesthesiology | DX: M96.1 Postlaminectomy syndrome, not elsewhere classified (principal); D50.9 Iron deficiency anemia, unspecified; Z86.711 Personal history of pulmonary embolism; Z88.6 Allergy status to analgesic agent; Z88.8 Allergy status to other drugs, medicaments and biological substances; Z79.899 Other long term (current) drug therapy ==

== ENCOUNTER → 2021-04-28 | Outpatient (CLI) | payer OTHER ==
[~2021-04-28] MED LIST changes: +BUPIVACAINE HCL 0.25% 10ML VIAL As Ordered ONE; +BUPIVACAINE HCL 0.25% 30ML VIAL As Ordered ONE; +NORCO, ANEXSIA 5/325MG TABLET (HYDROcodone/ACETAMINOPHEN) As Ordered ONE; +TRIAMCINOLONE ACETONIDE SUSP 40 MG/ML VIAL (J3301) As Ordered ONE; +diazePAM 5MG TABLET As Ordered ONE
== END ==
LOC: M PAIN 09:00
PROVIDERS: ATTEND Anesthesiology
DX: M79.18 Myalgia, other site (principal); Z98.84 Bariatric surgery status; Z86.711 Personal history of pulmonary embolism; D64.9 Anemia, unspecified; M54.2 Cervicalgia; Z79.899 Other long term (current) drug therapy; Z88.5 Allergy status to narcotic agent; Z88.8 Allergy status to other drugs, medicaments and biological substances
CPT/HCPCS: 20553; J3301

== ENCOUNTER → 2021-05-26 | Outpatient (CLI) | payer OTHER ==
[~2021-05-26] MED LIST changes: -BUPIVACAINE HCL 0.25% 10ML VIAL As Ordered ONE; -BUPIVACAINE HCL 0.25% 30ML VIAL As Ordered ONE; -NORCO, ANEXSIA 5/325MG TABLET (HYDROcodone/ACETAMINOPHEN) As Ordered ONE; -TRIAMCINOLONE ACETONIDE SUSP 40 MG/ML VIAL (J3301) As Ordered ONE; -diazePAM 5MG TABLET As Ordered ONE
== END ==
LOC: M PAIN 14:45
PROVIDERS: ATTEND Nurse Practitioner Family
DX: M79.10 Myalgia, unspecified site (principal); D50.9 Iron deficiency anemia, unspecified; Z86.711 Personal history of pulmonary embolism; Z98.84 Bariatric surgery status; Z88.6 Allergy status to analgesic agent; Z88.8 Allergy status to other drugs, medicaments and biological substances; Z79.899 Other long term (current) drug therapy

== ENCOUNTER → 2021-06-12 | Outpatient (CLI) | payer OTHER | LOC: M LABSMTC 11:34 | PROVIDERS: ATTEND Anesthesiology | DX: Z11.52 Encounter for screening for COVID-19 (principal) ==

== ENCOUNTER → 2021-06-17 | Outpatient (CLI) | payer OTHER | LOC: M PAIN 09:20 | PROVIDERS: ATTEND Anesthesiology | DX: M96.1 Postlaminectomy syndrome, not elsewhere classified (principal); K21.9 Gastro-esophageal reflux disease without esophagitis; D64.9 Anemia, unspecified; R01.1 Cardiac murmur, unspecified; M19.90 Unspecified osteoarthritis, unspecified site; M54.2 Cervicalgia; M25.511 Pain in right shoulder; Z86.711 Personal history of pulmonary embolism; M25.512 Pain in left shoulder; Z79.899 Other long term (current) drug therapy; Z88.6 Allergy status to analgesic agent; Z88.8 Allergy status to other drugs, medicaments and biological substances ==

== ENCOUNTER → 2021-07-01 | Outpatient (CLI) | payer OTHER | LOC: M PAIN 15:30 | PROVIDERS: ATTEND Anesthesiology | DX: M96.1 Postlaminectomy syndrome, not elsewhere classified (principal); D50.9 Iron deficiency anemia, unspecified; Z86.711 Personal history of pulmonary embolism; Z88.6 Allergy status to analgesic agent; Z88.8 Allergy status to other drugs, medicaments and biological substances; Z79.899 Other long term (current) drug therapy ==

== ENCOUNTER → 2021-07-16 | Outpatient (CLI) | payer OTHER | LOC: M LABSMTC 11:13 | PROVIDERS: ATTEND Surgery | DX: Z11.52 Encounter for screening for COVID-19 (principal); Z20.822 Contact with and (suspected) exposure to COVID-19 ==

== ENCOUNTER → 2021-08-12 | Outpatient (REF) | payer OTHER | LOC: M LAB REF 17:20 | PROVIDERS: ATTEND Internal Medicine Endocrinology, Diabetes & Metabolism | DX: E04.1 Nontoxic single thyroid nodule (principal) ==

== ENCOUNTER → 2021-09-11 | Outpatient (CLI) | payer OTHER | LOC: M PAIN 14:30 | PROVIDERS: ATTEND Anesthesiology | DX: Z53.21 Procedure and treatment not carried out due to patient leaving prior to being seen by health care provider (principal) ==

== ENCOUNTER → 2021-09-22 | Outpatient (CLI) | payer OTHER | LOC: M PAIN 14:45 | PROVIDERS: ATTEND Anesthesiology | DX: M96.1 Postlaminectomy syndrome, not elsewhere classified (principal); M50.10 Cervical disc disorder with radiculopathy, unspecified cervical region; Z86.711 Personal history of pulmonary embolism; Z87.442 Personal history of urinary calculi; K21.9 Gastro-esophageal reflux disease without esophagitis; D64.9 Anemia, unspecified; M19.90 Unspecified osteoarthritis, unspecified site; Z79.899 Other long term (current) drug therapy; Z88.6 Allergy status to analgesic agent; Z88.8 Allergy status to other drugs, medicaments and biological substances ==

== ENCOUNTER → 2021-09-25 | Outpatient (CLI) | payer OTHER | LOC: M LABSMTC 10:27 | PROVIDERS: ATTEND Anesthesiology | DX: Z01.812 Encounter for preprocedural laboratory examination (principal); Z11.52 Encounter for screening for COVID-19 ==

== ENCOUNTER → 2021-09-26 | Outpatient (CLI) | payer OTHER ==
[~2021-09-26] MED LIST changes: +ISOVUE-M 300 61% 15ML VIAL As Ordered ONE; +LIDOCAINE 1% SDV 30ML VIAL As Ordered ONE; +NORCO, ANEXSIA 5/325MG TABLET (HYDROcodone/ACETAMINOPHEN) As Ordered ONE; +NORCO, ANEXSIA 5/325MG TABLET (HYDROcodone/ACETAMINOPHEN) PO ONE; +diazePAM 5MG TABLET As Ordered ONE; +diazePAM 5MG TABLET PO ONE; +methylPREDNISolone SUSP 40MG/ML 1ML VIAL (DEPO MEDROL) As Ordered ONE
[2021-09-26 16:33] VITALS: BP 141/89
== END ==
LOC: M IRPRO 14:03
PROVIDERS: ATTEND Anesthesiology
DX: M50.13 Cervical disc disorder with radiculopathy, cervicothoracic region (principal); G89.29 Other chronic pain; G43.909 Migraine, unspecified, not intractable, without status migrainosus; M19.90 Unspecified osteoarthritis, unspecified site; Z98.84 Bariatric surgery status; Z87.442 Personal history of urinary calculi
CPT/HCPCS: 62321; J1030; Q9967

== ENCOUNTER → 2022-01-28 | Outpatient (CLI) | payer OTHER ==
[~2022-01-28] MED LIST changes: +GASTROGRAFIN SOLUTION 30ML (Q9963) As Ordered ONE; +ISOVUE-370 76% 100ML VIAL As Ordered ONE; -ISOVUE-M 300 61% 15ML VIAL As Ordered ONE; -LIDOCAINE 1% SDV 30ML VIAL As Ordered ONE; -NORCO, ANEXSIA 5/325MG TABLET (HYDROcodone/ACETAMINOPHEN) As Ordered ONE; -NORCO, ANEXSIA 5/325MG TABLET (HYDROcodone/ACETAMINOPHEN) PO ONE; +PRED5TA; +VITMTA PO; -diazePAM 5MG TABLET As Ordered ONE; -diazePAM 5MG TABLET PO ONE; -methylPREDNISolone SUSP 40MG/ML 1ML VIAL (DEPO MEDROL) As Ordered ONE
== END ==
LOC: M RAD 14:04
PROVIDERS: ATTEND Specialist
DX: R59.1 Generalized enlarged lymph nodes (principal)
CPT/HCPCS: 71260; 74177; Q9963; Q9967

== ENCOUNTER → 2022-02-09 | Outpatient (CLI) | payer OTHER ==
[~2022-02-09] MED LIST changes: -GASTROGRAFIN SOLUTION 30ML (Q9963) As Ordered ONE; -ISOVUE-370 76% 100ML VIAL As Ordered ONE; +LIDOCAINE 1% MDV 20ML VIAL As Ordered ONE
[2022-02-09 11:35] VITALS: BP 146/87
== END ==
LOC: M IRPRO 10:03
PROVIDERS: ATTEND Specialist
DX: R59.9 Enlarged lymph nodes, unspecified (principal)

== ENCOUNTER → 2022-02-13 | Outpatient (CLI) | payer OTHER ==
[~2022-02-13] MED LIST changes: -LIDOCAINE 1% MDV 20ML VIAL As Ordered ONE
== END ==
LOC: M WHC 14:55
PROVIDERS: ATTEND Specialist
DX: N63.11 Unspecified lump in the right breast, upper outer quadrant (principal); N63.21 Unspecified lump in the left breast, upper outer quadrant

== ENCOUNTER → 2022-03-16 | Outpatient (CLI) | payer OTHER | LOC: M PLARAD 10:28 | PROVIDERS: ATTEND Specialist | DX: R91.1 Solitary pulmonary nodule (principal); M43.26 Fusion of spine, lumbar region | CPT/HCPCS: 78815; A9552 ==

== ENCOUNTER → 2022-03-18 | Outpatient (CLI) | payer OTHER | LOC: M WHC 14:13 | PROVIDERS: ATTEND Specialist | DX: R92.8 Other abnormal and inconclusive findings on diagnostic imaging of breast (principal) ==

== ENCOUNTER → 2022-10-06 | Outpatient (CLI) | payer OTHER | LOC: M WHC 13:25 | PROVIDERS: ATTEND Specialist | DX: R92.8 Other abnormal and inconclusive findings on diagnostic imaging of breast (principal) ==

== ENCOUNTER 2023-12-05 12:11 | Emergency (ER) | payer OTHER ==
[~2023-12-05] VITALS: Ht 175.3 cm; Wt 86.0 kg
[~2023-12-05 12:11] MED LIST changes: +BUPR-597; -BUPR300T92
[2023-12-05 12:12] VITALS: BP 157/95; TEMP 97.9; O2SAT 99
[2023-12-05 13:17] LABS: BASO % 0.5 % (0.0-1.0); EOS # 0.1 10^3/uL (0.0-0.5); HEMOGLOBIN 13.9 g/dl (12.0-15.5); LYMPH # 2.1 10^3/uL (1.5-5.0); LYMPH % 35.2 % (24.0-44.0); MEAN CORPUSCULAR HGB CONC 33.1 g/dl (32.0-36.5); MEAN CORPUSCULAR VOLUME 93.8 fl (80.0-96.0); MONO # 0.4 10^3/uL (0.0-0.8); NEUTROPHILS # 3.3 10^3/uL (1.5-8.5); NEUTROPHILS % 56.1 % (36.0-66.0); PLATELET COUNT, AUTOMATED 294 10^3/uL (150-450); RED BLOOD COUNT 4.48 10^6/uL (4.00-5.40)
[2023-12-05 13:42] LABS: LIPASE 34 U/L (12-53)
[2023-12-05 13:44] LABS: ALBUMIN 4.2 G/DL (3.2-5.2); ALKALINE PHOSPHATASE 64 U/L (46-116); ALT/SGPT 22 U/L (7.0-40); AST/SGOT 20 U/L (<34); BILIRUBIN,DIRECT 0.3 MG/DL (<0.4); BILIRUBIN,TOTAL 0.8 MG/DL (0.3-1.2); BLOOD UREA NITROGEN 9 MG/DL (9-23); CALCIUM LEVEL 9.6 MG/DL (8.5-10.1); CARBON DIOXIDE LEVEL 30 MMOL/L (20-31); CHLORIDE LEVEL 105 MMOL/L (98-107); CREATININE FOR GFR 0.69 MG/DL (0.55-1.30); GLOMERULAR FILTRATION RATE > 60.0 (>58); GLUCOSE, FASTING 90 MG/DL (60-100); POTASSIUM SERUM 3.4 MMOL/L (3.5-5.1); SODIUM LEVEL 140 MMOL/L (136-145); TOTAL PROTEIN 7.3 G/DL (5.7-8.2)
[2023-12-05 13:55] LABS: HCG, SERUM QUALITATIVE NEGATIVE (NEGATIVE)
[2023-12-05 16:56] LABS: Trichomonas vaginalis (AMP) NOT DETECTED (NEGATIVE)
[2023-12-05 17:01] LABS: HIV 1&2 SCREEN NEGATIVE (NEGATIVE)
[2023-12-05 17:20] LABS: GC DNA AMPLIFICATION NEGATIVE (NEGATIVE)
== END 2023-12-05 16:02 | disposition home or self-care (01) ==
LOC: M ED 12:11
DX: R30.0 Dysuria (principal); Z79.810 Long term (current) use of selective estrogen receptor modulators (SERMs)

== ENCOUNTER → 2025-02-12 | Outpatient (CLI) | payer OTHER ==
[~2025-02-12] MED LIST changes: -BUPR-597; +BUPR-766; -CYCL5TAB PO; +CYCL5TAB4 PO; +GABA-1172 PO; -GABA-282 PO; -IBUP-1022 PO; +IBUP600T42 PO; +LIDO1ADH93 TD; -LIDO5DIS41 TD
[2025-02-12 06:45] LABS: BASO # 0.1 10^3/uL (0.0-0.2); BASO % 1.0 % (0.0-1.0); EOS # 0.5 10^3/uL (0.0-0.5); EOS % 7.6 % (0.0-3.0); LYMPH # 2.0 10^3/uL (1.5-5.0); LYMPH % 32.0 % (24.0-44.0); MONO # 0.5 10^3/uL (0.0-0.8); MONO % 7.8 % (2.0-8.0); NEUTROPHILS # 3.2 10^3/uL (1.5-8.5); NEUTROPHILS % 51.4 % (36.0-66.0); PLATELET COUNT, AUTOMATED 252 10^3/uL (150-450)
[2025-02-12 07:11] LABS: IRON (FE) 69.0 UG/DL (50-170); PERCENT SATURATION 22.0 % (13.2-45.0)
[2025-02-12 07:12] LABS: CALCIUM LEVEL 8.5 MG/DL (8.5-10.1); CARBON DIOXIDE LEVEL 28.0 MMOL/L (20-31); CHLORIDE LEVEL 105.0 MMOL/L (98-107); CHOLESTEROL LEVEL 180.0 MG/DL (<200); CHOLESTEROL RISK RATIO 2.56 (<5); CREATININE FOR GFR 0.87 MG/DL (0.55-1.30); GLOMERULAR FILTRATION RATE 83.7 (>58); LDL CHOLESTEROL 96.5 MG/DL (<100); NON-HDL-C 109.7 MG/DL; POTASSIUM SERUM 4.2 MMOL/L (3.5-5.1); SODIUM LEVEL 143.0 MMOL/L (136-145); TRIGLYCERIDES LEVEL 66.0 MG/DL (<150)
[2025-02-12 07:13] LABS: FREE T4 1.21 NG/DL (0.89-1.76)
== END ==
LOC: M LAB 06:05
PROVIDERS: ATTEND Internal Medicine Cardiovascular Disease
DX: Z01.812 Encounter for preprocedural laboratory examination (principal); D50.9 Iron deficiency anemia, unspecified; R53.83 Other fatigue; M54.2 Cervicalgia